=== PATIENT | female | born 1950 | race Caucasian/White ===

== ENCOUNTER 2018-10-23 08:20 | Inpatient (IN) ==
[2018-10-23] MEDS ORDERED: ONDANSETRON INJ 2 MG/ML 2 ML VIAL IV STA (08:44)
[2018-10-23] MEDS ORDERED: SODIUM CHLORIDE 0.9% 1000ML 1,000 ML IV ONE (08:47)
[2018-10-23] MEDS ORDERED: CEFEPIME 2,000 MG/20 ML VIAL IV STA (08:47)
[2018-10-23] MEDS ORDERED: ACETAMINOPHEN 1,000 MG/100 ML VIAL IV STA (08:47)
[2018-10-23 09:00] LABS: Basophils # (auto) 0.01 K/uL (0-0.2); Basophils % (auto) 0.1 %; Eosinophils # (auto) 0.02 K/uL (0-0.5); Eosinophils % (auto) 0.2 %; Hematocrit (blood only) 40.9 % (37-47); Hemoglobin 14.2 g/dL (12.0-16.0); Immature Granulocytes # (auto) 0.02 K/uL (0.00-0.02); Immature Granulocytes % (auto) 0.2 %; Lymphocytes # (auto) 0.98 K/uL (1.2-3.4); Mean Corpuscular Hgb Conc 34.7 g/dL (32-36); Mean Corpuscular Volume 91.5 fL (80-100); Mean Platelet Volume 10.5 fL (7.4-10.4); Monocytes # (auto) 0.57 K/uL (0.11-0.59); Monocytes % (auto) 5.8 %; Neutrophils # (auto) 8.22 K/uL (1.4-6.5); Neutrophils % (auto) 83.7 %; Platelet Count 127 K/uL (130-400); RDW Coefficient of Variation 13.7 % (11.5-14.5); RDW Standard Deviation 45.2 fL (36.4-46.3); Red Blood Count 4.47 M/uL (4.2-5.4); White Blood Count 9.82 K/uL (4.8-10.8)
--- NOTE | 2018-10-23 09:02 | Emergency Department Note ---
Entered by Rosemary Fuller acting as a scribe for Patrice España MD History of Present Illness General Chief complaint: Illness Stated complaint: R flank pain Time Seen by Provider: 10/23/18 08:39 Source: patient History of Present Illness Onset (ago): hour(s) (this morning) Location: abdomen (right flank) Radiation: back (right side) Severity: severe Pain Consistency: + other (persistent) Maximum Pain Intensity: 10 Current Pain Intensity: 10 Associated symptoms: + denies other symptoms (dysuria, urinary frequency), + c ough (productive), + fever/chills, + nausea/vomiting, + shortness of breath and + other (diarrhea) The patient is a 67 year old female that is presenting to the Emergency Room with complaints of persistent right-sided flank pain that worsened this morning. The patient reports that she and [place] were [place] campground and that the pain became so severe that she called EMS to bring her to the hospital. She describes the pain as 10/10 in severity. She states that she has had vomiting an d diarrhea for the past 3 days. She notes that she developed a subjective fever with chills last night that is still present today. She denies any dysuria or urinary frequency. She reports that she has chronic pain in her right side but notes that the pain is worse than baseline. The patient states she has a productive cough. She notes some shortness of breath but states that she has a history of COPD and wears O2 at night. She reports that she wears a CPAP at night. She states that she has a stimulator due to her chronic pain but notes that it has not relieved her current symptoms. The patient notes that she has a history of abdominal hernias and that she has a pelvic mesh in place. She denies any history of an appendectomy. She notes that she takes baby aspirin every day but denies taking any Coumadin. The patient notes that she has not taken any medication for the pain as she is unable to keep anything down. She notes that she has a history of sepsis from a kidney stone. She reports that she is allergic to Percocet. Home Medications Home Medications Medication Instructions Recorded Confirmed Type acetaminophen [Tylenol Extra 500 mg PO DIRECTED 10/23/18 10/23/18 History Strength] aspirin [Aspirin Low Dose] 162 mg PO DAILY 10/23/18 10/23/18 History buspirone 15 mg PO BID 10/23/18 10/23/18 History calcium carbonate [Calcium 600] 0 mg PO DAILY 10/23/18 10/23/18 History cholecalciferol (vitamin D3) 1,000 unit PO DAILY 10/23/18 10/23/18 History [Vitamin D3] clonazepam 0.5 tab PO HS 10/23/18 10/23/18 History cyanocobalamin (vitamin B-12) 1,000 mcg PO DAILY 10/23/18 10/23/18 History [Vitamin B-12] duloxetine 20 mg PO DAILY 10/23/18 10/23/18 History ferrous sulfate 325 mg PO BID 10/23/18 10/23/18 History fluticasone furoate-vilanterol 1 puff INHALATION DAILY 10/23/18 10/23/18 History [Breo Ellipta] levothyroxine 125 mcg PO QAM 10/23/18 10/23/18 History lisinopril-hydrochlorothiazide 1 tab PO DAILY 10/23/18 10/23/18 History meloxicam 0 mg PO DAILY 10/23/18 10/23/18 History metoprolol succinate 100 mg PO DAILY 10/23/18 10/23/18 History omeprazole 20 mg PO HS 10/23/18 10/23/18 History potassium chloride 0.5 tab PO DAILY 10/23/18 10/23/18 History potassium citrate 10 meq PO DAILY 10/23/18 10/23/18 History sertraline 100 mg PO HS 10/23/18 10/23/18 History simvastatin 20 mg PO HS 10/23/18 10/23/18 History Allergies Allergy/AdvReac Type Severity Reaction Status Date / Time etodolac Allergy Intermediate HIVES Verified 10/23/18 10:26 sumatriptan Allergy HIVES Verified 10/23/18 10:26 acetaminophen AdvReac Intermediate NAUSEA Verified 10/23/18 10:26 oxycodone AdvReac Intermediate NAUSEA Verified 10/23/18 10:26 Past Med/Surg History Medical History COPD (chronic obstructive pulmonary disease) (Chronic) Chronic pain (Chronic) Abdominal hernia (Acute) Family History Other Family history non-contributory Social History Preferred Language: Uzbek Communication Ability: Effective [employer] Inspector Required: No Beliefs That Will Affect Care: None marital status: Current Living Situation: Spouse current occupational status: unemployed Other Information That Helps Us Care for You: No Feels Safe at Home: Yes Safety Concerns: Feels Safe At This Time Smoking Status: Never smoker Do You Dip or Chew Tobacco: No Second Hand Exposure: No Tobacco Cessation Education Requested by Patient: No Hx Alcohol Use: No Hx Substance Use: Yes substance use type: marijuana Last Used Substance: Days (ago) Last Used Substance Other:: 2 days ago, prescription Review of Systems See HPI for pertinent positives & negatives. and A total of 10 systems reviewed and were otherwise negative Physical Exam Vital Signs Vital Signs - 24 hr 10/23/18 08:39 10/23/18 08:50 10/23/18 10:35 Temperature 38.6 C H Temperature Source Oral Sepsis Recent Fever Within 48 Hours Yes Sepsis New/Unexplained Change in Mental Status No Sepsis Action Taken by Nursing No Action Required Pulse Rate 114 H Pulse Rate [Apical] 104 H Pulse Rhythm [Apical] Pulse Strength [Apical] Respiratory Rate 20 18 Respiratory Effort / Characteristics Respiratory Depth Normal Respiratory Pattern Blood Pressure 135/72 Blood Pressure [Left Arm] 116/69 Blood Pressure Mean 93 Blood Pressure Mean [Left Arm] 84 Blood Pressure Position [Left Arm] Pulse Oximetry 93 96 94 Oxygen Delivery Method Room Air Nasal Cannula Nasal Cannula Oxygen Flow Rate 2 2 10/23/18 12:00 10/23/18 13:15 Temperature 37.8 C H Temperature Source Oral Sepsis Recent Fever Within 48 Hours Sepsis New/Unexplained Change in Mental Status Sepsis Action Taken by Nursing Pulse Rate Pulse Rate [Apical] 106 H 112 H Pulse Rhythm [Apical] Regular Pulse Strength [Apical] Normal Respiratory Rate 16 20 Respiratory Effort / Characteristics SOB on Exertion Respiratory Depth Normal Respiratory Pattern Regular Blood Pressure Blood Pressure [Left Arm] 108/64 112/68 Blood Pressure Mean Blood Pressure Mean [Left Arm] 78 82 Blood Pressure Position [Left Arm] Sitting Pulse Oximetry 94 95 Oxygen Delivery Method Nasal Cannula Nasal Cannula Oxygen Flow Rate 2 2 GENERAL: Patient is in no acute distress. HEENT: No acute trauma, normocephalic atraumatic, mucous membranes dry, no nasal congestion, no scleral icterus. NECK: No stridor, no adenopathy, no meningismus, trachea is midline. LUNGS: Clear to auscultation bilaterally, no wheeze, no rhonchi, breath sounds equal. HEART: Tachycardic with a regular rhythm, no murmurs. ABDOMEN: Soft, tender along the entire right side, bowel sounds positive, no hernias, no peritonitis. EXTREMITIES: No cyanosis or edema, full range of motion of all the joints without pain or difficulty, no signs for acute trauma. NEUROLOGIC: Oriented x 3, no acute motor or sensory deficits, no focal weakness. SKIN: No rash, no jaundice, no diaphoresis. Course 0841:The patient was evaluated in room B07. A complete history and physical examination was performed. 1015: I updated the patient on her current lab and imaging results. 1025: I discussed the patient's case with Shanice Elliott, who will evaluate the patient for further management and care. 1030: Upon reevaluation, the patient is resting comfortably. I discussed laboratory and radiographic results with the patient. She verbalized agreement of the treatment plan. The patient will be evaluated for further management and care. Consultations Consultation #1: I discussed the patient's case with Shanice Elliott, who will evaluate the patient for further management and care. Time: 10:25 Administered Medications Acetaminophen (Tylenol) 650 mg PO Q4H PRN PRN Reason: Pain or Fever Stop: 11/22/18 11:06 Last Admin: 10/23/18 14:06 Dose: 650 mg Documented by: [id number] Potassium Chloride/Sodium Chloride (Normal Saline W/20 Meq Kcl) 20 meq in 1,000 mls @ 125 mls/hr IV .Q8H KAILA Stop: 11/22/18 13:29 Last Admin: 10/23/18 14:08 Dose: 125 mls/hr Documented by: [id number] Discontinued Medications Hydromorphone HCl (Dilaudid) 1 mg IV Q45M PRN PRN Reason: Pain Stop: 11/06/18 08:43 Last Admin: 10/23/18 12:50 Dose: 1 mg Documented by: [id number] Admin: 10/23/18 10:30 Dose: 1 mg Documented by: [id number] Admin: 10/23/18 09:11 Dose: 1 mg Documented by: [id number] Acetaminophen (Ofirmev) 1,000 mg in 100 mls @ 400 mls/hr IV NOW STA Stop: 10/23/18 09:01 Last Infusion: 10/23/18 09:30 Dose: 0 mls/hr Documented by: [id number] Admin: 10/23/18 09:13 Dose: 400 mls/hr Documented by: [id number] Cefepime HCl (Maxipime) 2,000 mg in 20 mls @ 5 mls/min IV NOW STA; Protocol Stop: 10/23/18 08:50 Last Admin: 10/23/18 09:13 Dose: 5 mls/min Documented by: [id number] Sodium Chloride (Nss 1000ml) 1,000 mls @ 999 mls/hr IV .Q1H1M ONE Stop: 10/23/18 09:47 Last Infusion: 10/23/18 10:15 Dose: 0 mls/hr Documented by: [id number] Admin: 10/23/18 09:10 Dose: 999 mls/hr Documented by: [id number] Ampicillin Sodium/Sulbactam Sodium 3,000 mg/ Sodium Chloride 108 mls @ 200 mls/hr IV NOW STA; Protocol Stop: 10/23/18 10:53 Last Infusion: 10/23/18 12:00 Dose: 0 mls/hr Documented by: [id number] Admin: 10/23/18 11:07 Dose: 200 mls/hr Documented by: [id number] Sodium Chloride (Nss 1000ml) 500 mls @ 999 mls/hr IV .Q31M ONE Stop: 10/23/18 10:51 Last Infusion: 10/23/18 11:03 Dose: 0 mls/hr Documented by: [id number] Admin: 10/23/18 10:32 Dose: 999 mls/hr Documented by: [id number] Piperacillin Sod/Tazobactam (Sod 4.5 gm/ Dextrose) 120 mls @ 200 mls/hr IV NOW ONE; Protocol Stop: 10/23/18 14:05 Last Admin: 10/23/18 13:40 Dose: 200 mls/hr Documented by: [id number] Ondansetron HCl (Zofran) 4 mg IV NOW STA Stop: 10/23/18 08:45 Last Admin: 10/23/18 09:12 Dose: 4 mg Documented by: [id number] Potassium Chloride (Klor-Con M10) 40 meq PO NOW STA Stop: 10/23/18 13:16 Last Admin: 10/23/18 13:39 Dose: 40 meq Documented by: [id number] Medical Decision Making Differential Diagnosis Differential diagnosis includes: Etiologies such as renal colic, acute on chronic pain, biliary colic, pancreatitis, appendicitis, diverticulitis, pyelonephritis, pneumonia, CHF, renal failure, electrolyte imbalance as well as others were entertained. Medical Records Attestation: I reviewed the patient's medical records. Home Medications Current Medication List: was personally reviewed by me Laboratory Data Attestation: I reviewed the patient's lab results. Result diagrams: 10/23/18 08:33 10/23/18 08:33 Lab Results 10/23/18 10/23/18 10/23/18 Range/Units 08:33 08:33 08:33 WBC 9.82 (4.8-10.8) K/uL RBC 4.47 (4.2-5.4) M/uL Hgb 14.2 (12.0-16.0) g/dL Hct 40.9 (37-47) % MCV 91.5 (80-100) fL MCH 31.8 (25-34) pg MCHC 34.7 (32-36) g/dL RDW Std Deviation 45.2 (36.4-46.3) fL RDW Coeff of Neil 13.7 (11.5-14.5) % Plt Count 127 L (130-400) K/uL MPV 10.5 H (7.4-10.4) fL Immature Gran % (Auto) 0.2 % Neut % (Auto) 83.7 % Lymph % (Auto) 10.0 % [place]ois % (Auto) 5.8 % Eos % (Auto) 0.2 % Baso % (Auto) 0.1 % Immature Gran # (Auto) 0.02 (0.00-0.02) K/uL Neut # (Auto) 8.22 H (1.4-6.5) K/uL Lymph # (Auto) 0.98 L (1.2-3.4) K/uL [place]ois # (Auto) 0.57 (0.11-0.59) K/uL Eos # (Auto) 0.02 (0-0.5) K/uL Baso # (Auto) 0.01 (0-0.2) K/uL PT 10.4 (9.0-12.0) Seconds INR 1.0 (0.9-1.1) APTT (21.0-31.0) Seconds PTT Ratio Sodium 139 (136-145) mmol/L Potassium 3.1 L (3.5-5.1) mmol/L Chloride 107 (98-107) mmol/L Carbon Dioxide 24 (21-32) mmol/L Anion Gap 8.0 (3-11) BUN 14 (7-18) mg/dl Creatinine 0.81 (0.6-1.2) mg/dl Est Cr Clr Drug Dosing 79.8 ml/min Est GFR ( Amer) 88.3 Est GFR (Non-Af Amer) 76.2 BUN/Creatinine Ratio 16.8 (10-20) Glucose 122 H (70-99) mg/dl Lactate (0.4-2.0) mmol/L Calcium 9.2 (8.5-10.1) mg/dl Magnesium 1.8 (1.8-2.4) mg/dl Total Bilirubin 1.6 H (0.2-1) mg/dl AST 79 H (15-37) U/L ALT 120 H (12-78) U/L Alkaline Phosphatase 118 H (45-117) U/L Troponin I < 0.015 (0-0.045) ng/ml Total Protein 7.6 (6.4-8.2) gm/dl Albumin 3.4 (3.4-5.0) gm/dl Globulin 4.2 H (2.5-4.0) gm/dl Albumin/Globulin Ratio 0.8 L (0.9-2) Lipase 74 (73-393) U/L Urine Color Urine Appearance (Clear) Urine pH (4.5-7.5) Ur Specific [place] (1.000-1.030) Urine Protein (Negative) Urine Glucose (UA) (Negative) Urine Ketones (Negative) Urine Blood (Negative) Urine Nitrite (Negative) Urine Bilirubin (Negative) Urine Urobilinogen (Negative) Ur Leukocyte Esterase (Negative) Urine WBC (Auto) (0-5) /hpf Urine RBC (Auto) (0-4) /hpf U Hyaline Cast (Auto) (0-5) /lpf U Epithel Cells (Auto) (0-5) /lpf Urine Bacteria (Auto) (Negative) 10/23/18 10/23/18 10/23/18 Range/Units 08:33 08:33 09:21 WBC (4.8-10.8) K/uL RBC (4.2-5.4) M/uL Hgb (12.0-16.0) g/dL Hct (37-47) % MCV (80-100) fL MCH (25-34) pg MCHC (32-36) g/dL RDW Std Deviation (36.4-46.3) fL RDW Coeff of Neil (11.5-14.5) % Plt Count (130-400) K/uL MPV (7.4-10.4) fL Immature Gran % (Auto) % Neut % (Auto) % Lymph % (Auto) % Dubois % (Auto) % Eos % (Auto) % Baso % (Auto) % Immature Gran # (Auto) (0.00-0.02) K/uL Neut # (Auto) (1.4-6.5) K/uL Lymph # (Auto) (1.2-3.4) K/uL [place]ois # (Auto) (0.11-0.59) K/uL Eos # (Auto) (0-0.5) K/uL Baso # (Auto) (0-0.2) K/uL PT (9.0-12.0) Seconds INR (0.9-1.1) APTT 27.6 (21.0-31.0) Seconds PTT Ratio 1.0 Sodium (136-145) mmol/L Potassium (3.5-5.1) mmol/L Chloride (98-107) mmol/L Carbon Dioxide (21-32) mmol/L Anion Gap (3-11) BUN (7-18) mg/dl Creatinine (0.6-1.2) mg/dl Est Cr Clr Drug Dosing ml/min Est GFR ( Amer) Est GFR (Non-Af Amer) BUN/Creatinine Ratio (10-20) Glucose (70-99) mg/dl Lactate 1.3 (0.4-2.0) mmol/L Calcium (8.5-10.1) mg/dl Magnesium (1.8-2.4) mg/dl Total Bilirubin (0.2-1) mg/dl AST (15-37) U/L ALT (12-78) U/L Alkaline Phosphatase (45-117) U/L Troponin I Cancelled (0-0.045) ng/ml Total Protein (6.4-8.2) gm/dl Albumin (3.4-5.0) gm/dl Globulin (2.5-4.0) gm/dl Albumin/Globulin Ratio (0.9-2) Lipase (73-393) U/L Urine Color Urine Appearance (Clear) Urine pH (4.5-7.5) Ur Specific [place] (1.000-1.030) Urine Protein (Negative) Urine Glucose (UA) (Negative) Urine Ketones (Negative) Urine Blood (Negative) Urine Nitrite (Negative) Urine Bilirubin (Negative) Urine Urobilinogen (Negative) Ur Leukocyte Esterase (Negative) Urine WBC (Auto) (0-5) /hpf Urine RBC (Auto) (0-4) /hpf U Hyaline Cast (Auto) (0-5) /lpf U Epithel Cells (Auto) (0-5) /lpf Urine Bacteria (Auto) (Negative) 10/23/18 Range/Units 10:15 WBC (4.8-10.8) K/uL RBC (4.2-5.4) M/uL Hgb (12.0-16.0) g/dL Hct (37-47) % MCV (80-100) fL MCH (25-34) pg MCHC (32-36) g/dL RDW Std Deviation (36.4-46.3) fL RDW Coeff of Neil (11.5-14.5) % Plt Count (130-400) K/uL MPV (7.4-10.4) fL Immature Gran % (Auto) % Neut % (Auto) % Lymph % (Auto) % [place] % (Auto) % Eos % (Auto) % Baso % (Auto) % Immature Gran # (Auto) (0.00-0.02) K/uL Neut # (Auto) (1.4-6.5) K/uL Lymph # (Auto) (1.2-3.4) K/uL [place]ois # (Auto) (0.11-0.59) K/uL Eos # (Auto) (0-0.5) K/uL Baso # (Auto) (0-0.2) K/uL PT (9.0-12.0) Seconds INR (0.9-1.1) APTT (21.0-31.0) Seconds PTT Ratio Sodium (136-145) mmol/L Potassium (3.5-5.1) mmol/L Chloride (98-107) mmol/L Carbon Dioxide (21-32) mmol/L Anion Gap (3-11) BUN (7-18) mg/dl Creatinine (0.6-1.2) mg/dl Est Cr Clr Drug Dosing ml/min Est GFR ( Amer) Est GFR (Non-Af Amer) BUN/Creatinine Ratio (10-20) Glucose (70-99) mg/dl Lactate (0.4-2.0) mmol/L Calcium (8.5-10.1) mg/dl Magnesium (1.8-2.4) mg/dl Total Bilirubin (0.2-1) mg/dl AST (15-37) U/L ALT (12-78) U/L Alkaline Phosphatase (45-117) U/L Troponin I (0-0.045) ng/ml Total Protein (6.4-8.2) gm/dl Albumin (3.4-5.0) gm/dl Globulin (2.5-4.0) gm/dl Albumin/Globulin Ratio (0.9-2) Lipase (73-393) U/L Urine Color Dark Yellow Urine Appearance Cloudy A (Clear) Urine pH 5.5 (4.5-7.5) Ur Specific [place] 1.031 H (1.000-1.030) Urine Protein 1+ H (Negative) Urine Glucose (UA) Negative (Negative) Urine Ketones Trace H (Negative) Urine Blood 1+ H (Negative) Urine Nitrite Positive A (Negative) Urine Bilirubin Negative (Negative) Urine Urobilinogen Negative (Negative) Ur Leukocyte Esterase Negative (Negative) Urine WBC (Auto) 1-5 (0-5) /hpf Urine RBC (Auto) 0-4 (0-4) /hpf U Hyaline Cast (Auto) 5-10 H (0-5) /lpf U Epithel Cells (Auto) >30 H (0-5) /lpf Urine Bacteria (Auto) 2+ H (Negative) Imaging Data Radiologist's Impression: Radiology results as stated below per my review and the radiologist's interpretation: CT SCAN OF THE ABDOMEN AND PELVIS WITHOUT CONTRAST CLINICAL HISTORY: Right flank pain. History of fibromyalgia. History of kidney stones. COMPARISON STUDY: No previous studies for comparison. TECHNIQUE: CT scan of the abdomen and pelvis was performed from the lung bases to the proximal femurs. Images are reviewed in the axial, sagittal, and coronal planes. IV contrast was not administered for this examination. A dose lowering technique was utilized adhering to the principles of ALARA. CT DOSE: 1414.72 mGy.cm FINDINGS: Lower chest: The heart is normal in size and configuration, without pericardial effusion. The lung bases and pleural spaces are clear. There is a small Bochdalek hernia. Liver: There is hepatic steatosis. No focal hepatic masses are visualized. The liver is enlarged measuring 23 cm. Gallbladder: Surgically absent Spleen: Top normal in size Pancreas: Unremarkable. Adrenal glands: Unremarkable. Kidneys: There are subtle right renal calcifications, likely cortical. No ureteral or bladder calculi are visualized. Bowel: There are no transition zones indicate bowel obstruction. The appendix is normal. There is pandiverticulosis. There is infiltration the pericolonic fat at the level of the ascending colon, likely secondary to diverticulitis. There are no fluid collections to indicate a peridiverticular abscess. Peritoneum: There is no free air. There is no ascites. There is a ventral hernia mesh. There are small fat-containing umbilical hernia, and infraumbilical ventral hernia. Vasculature: The abdominal aorta is normal in course and caliber. Adenopathy: None. Pelvic viscera: The bladder, and pelvic viscera are unremarkable. Skeletal structures: A spinal cord stimulator is visualized. IMPRESSION: 1. No evidence of bowel obstruction. No evidence of free air 2. Hepatic steatosis and mild hepatomegaly 3. Normal appendix 4. Pandiverticulosis. Infiltration of the pericolonic fat at the level of the ascending colon likely secondary to acute diverticulitis. Electronically signed by: Pipo Cano M.D. 10/23/2018 9:58 AM XR chest 1V portable CLINICAL HISTORY: sob,cough COMPARISON STUDY: 01/15/2013 FINDINGS: The heart is borderline enlarged. A spinal cord stimulator is visualized. There is mild elevation of the interstitium suggesting mild pulmonary vascular congestion/fluid overload versus artifact from a large body habitus. There is a calcified granuloma within the left midlung zone. There is no lobar consolidation. There are no significant pleural effusions.[ IMPRESSION: 1. Slight elevation of the interstitium. Mild pulmonary vascular congestion versus artifact secondary to large body habitus. 2. No evidence of focal pulmonary consolidation Electronically signed by: Pipo Cano M.D. 10/23/2018 10:04 AM ECG Data Attestation: I personally reviewed and interpreted this ECG as follows: Indication: abdominal pain Rate (beats per minute): 109 Rhythm: sinus tachycardia Findings: + other (potential old inferior infarct) and + nonspecific-ST abn (diffuse); no ST elevation Blood Pressure Blood Pressure Findings: Normal blood pressure MDM Narrative There is no leukocytosis or concerning anemia. Platelet count mildly low at 127. No coagulopathy. Potassium is slightly low at 3.1. No kidney failure. There was some liver enzyme elevation, apparently, the patient is aware of the mildly elevated liver enzymes from previous testing. There was no pancreatitis. EKG showed a sinus tachycardia, no acute ischemia. Cardiac enzyme testing x1 was not consistent with acute cardiac injury. Lactic acid level was not elevated making severe sepsis less likely. Chest film did not show pneumonia or CHF. Abdominal and pelvis CT did not show hydronephrosis or bowel obstruction. There was diverticulitis noted. No abscess seen. Urinalysis showed possible contamination versus infection, urine culture is pending. Blood cultures are pending. Patient was aggressively managed as she presented tachycardic and febrile. She received IV saline, a second bolus of saline was given. She was given IV Zofran, IV Dilaudid, IV cefepime and IV Tylenol. She received IV Unasyn once the diverticulitis was noted on CT. The patient does feel improved, she seems more comfortable. Given the fever, the tachycardia, the nausea and vomiting, the findings on CT, I do think a hospital stay is warranted. I spoke to the patient and case management. The on-call hospitalist was consulted. I do think the diverticulitis could explain her symptoms. Impression & Plan Acute diverticulitis, Nausea vomiting and diarrhea, Tachycardia, Right sided abdominal pain, Acute dehydration, Fever Critical Care Time I have personally spent 35 minutes of critical care time in the direct management of this patient. This includes bedside care, interpretation of diagn ostic studies, and testing, discussion with consultants, patient, and family members, and other required patient management activities. This 35 minutes is in excess of all separately billable procedures. Critical Care Time: Yes Total Critical Care Time: 35 Discharge Plan Visit Data *Final* Discharge Date/Time: 10/23/18 12:43 Chief Complaint: Illness Stated Complaint: R flank pain ED Provider: Patrice España Discharge Problem: Acute diverticulitis, Nausea vomiting and diarrhea, Tachycardia, Right sided abdominal pain, Acute dehydration, Fever Patient Disposition: Admitted As Inpatient Discharge Instructions Interventions: ED Discharge Assessment Last Done: 10/23/18 12:43 Discharge Problem: Fever Qualifiers: Fever type: unspecified Qualified Code(s): R50.9 - Fever, unspecified The scribe's documentation has been prepared under my direction and personally reviewed by me in its entirety. I confirm that the note above accurately reflects all work, treatment, procedures, and medical decision making performed by me.
[2018-10-23 09:07] LABS: Alanine Aminotransferase 120 U/L (12-78); Albumin Level 3.4 gm/dl (3.4-5.0); Aspartate Aminotransferase 79 U/L (15-37); BUN Creatinine Ratio 16.8 (10-20); Blood Urea Nitrogen 14 mg/dl (7-18); Calcium 9.2 mg/dl (8.5-10.1); Carbon Dioxide 24 mmol/L (21-32); Chloride 107 mmol/L (98-107); Creatinine Clr Calc Pharmacy 79.8 ml/min; Est GFR (African American) 88.3; Est GFR (Non-African American) 76.2; Glucose 122 mg/dl (70-99); Magnesium 1.8 mg/dl (1.8-2.4); Potassium 3.1 mmol/L (3.5-5.1); Sodium 139 mmol/L (136-145)
[2018-10-23] MEDS: HYDROmorphone INJ 1 MG/ML SYRINGE IV PRN ×5 (09:11→21:41)
[2018-10-23 09:12] LABS: Albumin Globulin Ratio 0.8 (0.9-2); Alkaline Phosphatase 118 U/L (45-117); Bilirubin,Total 1.6 mg/dl (0.2-1); Globulin 4.2 gm/dl (2.5-4.0); Partial Thromboplastin Time 27.6 Seconds (21.0-31.0); Total Protein 7.6 gm/dl (6.4-8.2); Troponin I < 0.015 ng/ml (0-0.045)
[2018-10-23 09:14] LABS: Prothrombin Time 10.4 Seconds (9.0-12.0)
--- NOTE | 2018-10-23 10:00 | CT Scan Report ---
CT SCAN OF THE ABDOMEN AND PELVIS WITHOUT CONTRAST CLINICAL HISTORY: Right flank pain. History of fibromyalgia. History of kidney stones. COMPARISON STUDY: No previous studies for comparison. TECHNIQUE: CT scan of the abdomen and pelvis was performed from the lung bases to the proximal femurs . Images are reviewed in the axial, sagittal, and coronal planes. IV contrast was not administered fo r this examination. A dose lowering technique was utilized adhering to the principles of ALARA. CT DOSE: 1414.72 mGy.cm FINDINGS: Lower chest: The heart is normal in size and configuration, without pericardial effusion. The lung ba ses and pleural spaces are clear. There is a small Bochdalek hernia. Liver: There is hepatic steatosis. No focal hepatic masses are visualized. The liver is enlarged anne uring 23 cm. Gallbladder: Surgically absent Spleen: Top normal in size Pancreas: Unremarkable. Adrenal glands: Unremarkable. Kidneys: There are subtle right renal calcifications, likely cortical. No ureteral or bladder calculi are visualized. Bowel: There are no transition zones indicate bowel obstruction. The appendix is normal. There is mena diverticulosis. There is infiltration the pericolonic fat at the level of the ascending colon, likely secondary to diverticulitis. There are no fluid collections to indicate a peridiverticular abscess. Peritoneum: There is no free air. There is no ascites. There is a ventral hernia mesh. There are smal l fat-containing umbilical hernia, and infraumbilical ventral hernia. Vasculature: The abdominal aorta is normal in course and caliber. Adenopathy: None. Pelvic viscera: The bladder, and pelvic viscera are unremarkable. Skeletal structures: A spinal cord stimulator is visualized. IMPRESSION: 1. No evidence of bowel obstruction. No evidence of free air 2. Hepatic steatosis and mild hepatomegaly 3. Normal appendix 4. Pandiverticulosis. Infiltration of the pericolonic fat at the level of the ascending colon likely secondary to acute diverticulitis. Electronically signed by: Pipo Cano M.D. 10/23/2018 9:58 AM
--- NOTE | 2018-10-23 10:05 | XRay Report ---
XR chest 1V portable CLINICAL HISTORY: sob,cough COMPARISON STUDY: 01/15/2013 FINDINGS: The heart is borderline enlarged. A spinal cord stimulator is visualized. There is mild ce vation of the interstitium suggesting mild pulmonary vascular congestion/fluid overload versus artifa ct from a large body habitus. There is a calcified granuloma within the left midlung zone. There is n o lobar consolidation. There are no significant pleural effusions.[ IMPRESSION: 1. Slight elevation of the interstitium. Mild pulmonary vascular congestion versus artifact secondary to large body habitus. 2. No evidence of focal pulmonary consolidation Electronically signed by: Pipo Cano M.D. 10/23/2018 10:04 AM
[2018-10-23] MEDS ORDERED: SODIUM CHLORIDE 0.9% 1000ML 500 ML IV ONE (10:21)
[2018-10-23] MEDS ORDERED: AMPICILLIN/SULBACTAM SOD 3,000 MG in 0.9 % SODIUM CHLORIDE 100 ML IV STA (10:21)
[2018-10-23 10:29] LABS: Appearance Urine Cloudy (Clear); Bacteria Urine Automated 2+ (Negative); Blood Urine 1+ (Negative); Color Urine Dark Yellow; Epithelial Cell Urine Auto >30 /lpf (0-5); Glucose Urine UA Negative (Negative); Ketones Urine Trace (Negative); Leukocyte Esterase Urine Negative (Negative); Nitrite Urine Positive (Negative); Protein Urine 1+ (Negative); Specific Gravity Urine 1.031 (1.000-1.030); Urobilinogen Urine Negative (Negative); pH Urine 5.5 (4.5-7.5)
[2018-10-23 10:54] LABS: Bilirubin Urine Negative (Negative); Ictotest Urine Negative (Negative)
[2018-10-23 10:58] LABS: RBC Urine Automated 0-4 /hpf (0-4)
[2018-10-23] MEDS ORDERED: PIPERACILL/TAZOBAC CONSULT ACTIVE PRN (11:38)
--- NOTE | 2018-10-23 12:25 | History & Physical Report ---
Date of Service October 23, 2018 Assessment & Plan (1) Right sided abdominal pain: Possible Sepsis from: Acute diverticulitis, Ascending Colon Rule out UTI, pyelonephritis BP on the low side lactic acid normal Follow-up blood and urine cultures Empiric Zosyn IV day 1 IV NSS at 125 cc/h N.p.o. except for meds, ice chips/sips of water Dilaudid 1 mg every 4 hours as needed, avoiding Toradol in light of allergy to etodolac, avoiding Tylenol in light of elevated LFTs Diarrhea History of antibiotic use recently Check for C. difficile Elevation of LFTs Will check liver ultrasound Monitor liver panel daily COPD Requiring 2 L of nasal cannula We will order nebs every 6 hours May have atelectasis from pain Incentive spirometry ordered Continue usual Brio DVT prophylaxis SCDs for now in light of diverticulitis If with no melena or hematochezia, will start Lovenox Full code as per patient Disposition Anticipate discharge to home medically stable History of Present Illness 67-year-old female with history of COPD, chronic pain, presenting with right- sided flank pain x2 weeks. Patient reports she was in her usual state of health until about 2 weeks ago when she started to have right flank pain radiating to her right groin About 2 weeks ago. Patient consulted with her primary care provider and was found to have muscular pain, conservative measures recommended. Following that, the pain progressed, and during the last 2 days was associated with nausea, vomiting, diarrhea. Denies melena or hematochezia. Denies dysuria. Yesterday patient started to have chills as well. At the ER patient was found to be tachycardic, febrile 38.6. CT abdomen and pelvis revealed possible descending colon diverticulitis. UA suggestive of possible UTI. On exam, patient was not in distress but appears uncomfortable, still having significant right flank pain. Denies chest pain, shortness of breath, dizziness, palpitations. No other symptoms. Primary Care Provider: NO PCP Allergies Allergy/AdvReac Type Severity Reaction Status Date / Time etodolac Allergy Intermediate HIVES Verified 10/23/18 10:26 sumatriptan Allergy HIVES Verified 10/23/18 10:26 acetaminophen AdvReac Intermediate NAUSEA Verified 10/23/18 10:26 oxycodone AdvReac Intermediate NAUSEA Verified 10/23/18 10:26 Home Medications Home Medications Medication Instructions Recorded Confirmed Type acetaminophen [Tylenol Extra 500 mg PO DIRECTED 10/23/18 10/23/18 History Strength] aspirin [Aspirin Low Dose] 162 mg PO DAILY 10/23/18 10/23/18 History buspirone 15 mg PO BID 10/23/18 10/23/18 History calcium carbonate [Calcium 600] 0 mg PO DAILY 10/23/18 10/23/18 History cholecalciferol (vitamin D3) 1,000 unit PO DAILY 10/23/18 10/23/18 History [Vitamin D3] clonazepam 0.5 tab PO HS 10/23/18 10/23/18 History cyanocobalamin (vitamin B-12) 1,000 mcg PO DAILY 10/23/18 10/23/18 History [Vitamin B-12] duloxetine 20 mg PO DAILY 10/23/18 10/23/18 History ferrous sulfate 325 mg PO BID 10/23/18 10/23/18 History fluticasone furoate-vilanterol 1 puff INHALATION DAILY 10/23/18 10/23/18 History [Breo Ellipta] levothyroxine 125 mcg PO QAM 10/23/18 10/23/18 History lisinopril-hydrochlorothiazide 1 tab PO DAILY 10/23/18 10/23/18 History meloxicam 0 mg PO DAILY 10/23/18 10/23/18 History metoprolol succinate 100 mg PO DAILY 10/23/18 10/23/18 History omeprazole 20 mg PO HS 10/23/18 10/23/18 History potassium chloride 0.5 tab PO DAILY 10/23/18 10/23/18 History potassium citrate 10 meq PO DAILY 10/23/18 10/23/18 History sertraline 100 mg PO HS 10/23/18 10/23/18 History simvastatin 20 mg PO HS 10/23/18 10/23/18 History Past Med/Surg History Medical History COPD (chronic obstructive pulmonary disease) (Chronic) Chronic pain (Chronic) Abdominal hernia (Acute) Family History Other Family history non-contributory Social History Preferred Language: Czech Communication Ability: Effective Anesthesiology Physician Assistant Required: No Beliefs That Will Affect Care: None marital status: Current Living Situation: Spouse current occupational status: unemployed Other Information That Helps Us Care for You: No Feels Safe at Home: Yes Safety Concerns: Feels Safe At This Time Smoking Status: Never smoker Do You Dip or Chew Tobacco: No Second Hand Exposure: No Tobacco Cessation Education Requested by Patient: No Hx Alcohol Use: No Hx Substance Use: Yes substance use type: marijuana Last Used Substance: Days (ago) Last Used Substance Other:: 2 days ago, prescription Review of Systems Review of Systems: All systems reviewed & are unremarkable except as noted in HPI & below Physical Exam Physical Exam: General- oriented x 3, not in distress, speaks in sentences with no effort or accessory muscle use Head- atraumatic Eyes- PERRL, EOMI, anicteric ENT- oropharynx clear Neck- supple, no JVD, no adenopathy, no thyromegaly; carotids +2/2, no bruits appreciated Lungs- clear to auscultation bilaterally, no rales/wheezes Heart- normal rate, regular rhythm; no murmur, no gallop, no rub appreciated Abdomen- normal bowel sounds, nondistended, soft, positive right lower quadrant tenderness, moderate, no masses or hepatosplenomegaly Extremities- no pretibial edema, no calf tenderness; peripheral pulses intact Neuro- alert, oriented x 3; CN 2-12 grossly intact; motor 5/5 bilaterally;sensation 100% on all extremities; no other gross focal neurologic deficits Skin- warm & dry Results & Data Vital Signs (Past 12 Hours) Vital Signs Temp Pulse Pulse Resp BP BP Pulse Ox 10/23/18 12:00 106 H 16 108/64 94 10/23/18 10:35 104 H 18 116/69 94 10/23/18 08:50 96 10/23/18 08:39 38.6 C H 114 H 20 135/72 93 Laboratory Results Laboratory Results - last 24 hr 10/23/18 10/23/18 10/23/18 08:33 08:33 08:33 WBC 9.82 RBC 4.47 Hgb 14.2 Hct 40.9 MCV 91.5 MCH 31.8 MCHC 34.7 RDW Std Deviation 45.2 RDW Coeff of Neil 13.7 Plt Count 127 L MPV 10.5 H Immature Gran % (Auto) 0.2 Neut % (Auto) 83.7 Lymph % (Auto) 10.0 [place] % (Auto) 5.8 Eos % (Auto) 0.2 Baso % (Auto) 0.1 Immature Gran # (Auto) 0.02 Neut # (Auto) 8.22 H Lymph # (Auto) 0.98 L [place] # (Auto) 0.57 Eos # (Auto) 0.02 Baso # (Auto) 0.01 PT 10.4 INR 1.0 APTT PTT Ratio Sodium 139 Potassium 3.1 L Chloride 107 Carbon Dioxide 24 Anion Gap 8.0 BUN 14 Creatinine 0.81 Est Cr Clr Drug Dosing 79.8 Est GFR ( Amer) 88.3 Est GFR (Non-Af Amer) 76.2 BUN/Creatinine Ratio 16.8 Glucose 122 H Lactate Calcium 9.2 Magnesium 1.8 Total Bilirubin 1.6 H AST 79 H ALT 120 H Alkaline Phosphatase 118 H Troponin I < 0.015 Total Protein 7.6 Albumin 3.4 Globulin 4.2 H Albumin/Globulin Ratio 0.8 L Lipase 74 Urine Color Urine Appearance Urine pH Ur Specific [place] Urine Protein Urine Glucose (UA) Urine Ketones Urine Blood Urine Nitrite Urine Bilirubin Urine Urobilinogen Ur Leukocyte Esterase Urine WBC (Auto) Urine RBC (Auto) U Hyaline Cast (Auto) U Epithel Cells (Auto) Urine Bacteria (Auto) 10/23/18 10/23/18 10/23/18 08:33 08:33 09:21 WBC RBC Hgb Hct MCV MCH MCHC RDW Std Deviation RDW Coeff of Neil Plt Count MPV Immature Gran % (Auto) Neut % (Auto) Lymph % (Auto) [place] % (Auto) Eos % (Auto) Baso % (Auto) Immature Gran # (Auto) Neut # (Auto) Lymph # (Auto) [place] # (Auto) Eos # (Auto) Baso # (Auto) PT INR APTT 27.6 PTT Ratio 1.0 Sodium Potassium Chloride Carbon Dioxide Anion Gap BUN Creatinine Est Cr Clr Drug Dosing Est GFR ( Amer) Est GFR (Non-Af Amer) BUN/Creatinine Ratio Glucose Lactate 1.3 Calcium Magnesium Total Bilirubin AST ALT Alkaline Phosphatase Troponin I Cancelled Total Protein Albumin Globulin Albumin/Globulin Ratio Lipase Urine Color Urine Appearance Urine pH Ur Specific [place] Urine Protein Urine Glucose (UA) Urine Ketones Urine Blood Urine Nitrite Urine Bilirubin Urine Urobilinogen Ur Leukocyte Esterase Urine WBC (Auto) Urine RBC (Auto) U Hyaline Cast (Auto) U Epithel Cells (Auto) Urine Bacteria (Auto) 10/23/18 10:15 WBC RBC Hgb Hct MCV MCH MCHC RDW Std Deviation RDW Coeff of Neil Plt Count MPV Immature Gran % (Auto) Neut % (Auto) Lymph % (Auto) [place] % (Auto) Eos % (Auto) Baso % (Auto) Immature Gran # (Auto) Neut # (Auto) Lymph # (Auto) [place] # (Auto) Eos # (Auto) Baso # (Auto) PT INR APTT PTT Ratio Sodium Potassium Chloride Carbon Dioxide Anion Gap BUN Creatinine Est Cr Clr Drug Dosing Est GFR ( Amer) Est GFR (Non-Af Amer) BUN/Creatinine Ratio Glucose Lactate Calcium Magnesium Total Bilirubin AST ALT Alkaline Phosphatase Troponin I Total Protein Albumin Globulin Albumin/Globulin Ratio Lipase Urine Color Dark Yellow Urine Appearance Cloudy A Urine pH 5.5 Ur Specific [place] 1.031 H Urine Protein 1+ H Urine Glucose (UA) Negative Urine Ketones Trace H Urine Blood 1+ H Urine Nitrite Positive A Urine Bilirubin Negative Urine Urobilinogen Negative Ur Leukocyte Esterase Negative Urine WBC (Auto) 1-5 Urine RBC (Auto) 0-4 U Hyaline Cast (Auto) 5-10 H U Epithel Cells (Auto) >30 H Urine Bacteria (Auto) 2+ H Code Status & VTE Plan Code Status Full code
--- NOTE | 2018-10-23 12:46 | Ultrasound Report ---
BILIARY ULTRASOUND CLINICAL HISTORY: elevated LFTs COMPARISON STUDY: CT scan the abdomen pelvis dated 10/23/2018 FINDINGS: The study is limited from a technical standpoint due to the patient's large body habitus. The pancreas was nonvisualized. The liver is of increased echogenicity consistent with hepatic steato sis. The gallbladder surgically absent. The common bile duct was difficult to visualize but there is no definite ductal dilatation. IMPRESSION: 1. Technically limited study secondary to the patient's large body habitus 2. Surgically absent gallbladder 3. Hepatic steatosis 4. Nonvisualization of the pancreas Electronically signed by: Pipo Cano M.D. 10/23/2018 12:44 PM
[2018-10-23] MEDS ORDERED: POTASSIUM CHLORIDE 10 MEQ TABCR PO STA (13:15)
[2018-10-23] MEDS ORDERED: PIPERACILLIN/TAZOBACTAM 4.5 GM in DEXTROSE 5% 100 ML IV ONE (13:30)
[2018-10-23] MEDS: ACETAMINOPHEN 325 MG TAB PO PRN ×2 (14:06→20:22)
[2018-10-23] MEDS: NSS + 20MEQ KCL 20 MEQ/1,000 ML BAG IV SCH ×2 (14:08→21:00)
[2018-10-23] MEDS ORDERED: XOPENEX/ATROVENT 0.63mg/0.5MG NEB COMBO NEB PRN (14:13)
[2018-10-23] MEDS ORDERED: IPRATROPIUM BROMIDE NEB SOLN 0.02% 2.5 ML VIAL INH PRN (14:15)
[2018-10-23] MEDS ORDERED: LEVALBUTEROL HCL 0.63 MG/3 ML NEB NEB PRN (14:15)
[2018-10-23] MEDS: LIDOCAINE 5% 1 PATCH TD SCH (17:33)
[2018-10-23] MEDS: PIPERACILLIN/TAZOBACTAM 4.5 GM in DEXTROSE 5% 100 ML IV SCH (18:04)
[2018-10-23] MEDS: PANTOprazole 40 MG TAB PO SCH (20:22)
[2018-10-23] MEDS: clonazePAM 0.5 MG TAB PO SCH (20:22)
[2018-10-23] MEDS: SERTRALINE HCL 100 MG TABLET PO SCH (20:23)
[2018-10-23] MEDS: FERROUS SULFATE 325 MG TAB PO SCH (20:23)
[2018-10-23] MEDS: BusPIRone 15 MG TAB PO SCH (20:23)
[2018-10-23] MEDS: SIMVASTATIN 20 MG TAB PO SCH (21:00)
[2018-10-24] MEDS: PIPERACILLIN/TAZOBACTAM 4.5 GM in DEXTROSE 5% 100 ML IV SCH ×3 (01:27→17:28)
[2018-10-24] MEDS: ACETAMINOPHEN 325 MG TAB PO PRN ×2 (01:27→12:25)
[2018-10-24] MEDS: HYDROmorphone INJ 1 MG/ML SYRINGE IV PRN ×4 (01:59→21:16)
[2018-10-24] MEDS: NSS + 20MEQ KCL 20 MEQ/1,000 ML BAG IV SCH ×3 (05:14→23:00)
[2018-10-24] MEDS: LEVOTHYROXINE SODIUM 125 MCG TABLET PO SCH (05:26)
[2018-10-24 06:36] LABS: Hematocrit (blood only) 35.6 % (37-47); Hemoglobin 11.9 g/dL (12.0-16.0); Mean Corpuscular Hgb Conc 33.4 g/dL (32-36); Mean Corpuscular Volume 93.7 fL (80-100); RDW Standard Deviation 47.7 fL (36.4-46.3); White Blood Count 6.19 K/uL (4.8-10.8)
[2018-10-24 06:58] LABS: Basophils # (auto) 0.01 K/uL (0-0.2); Basophils % (auto) 0.2 %; Eosinophils # (auto) 0.13 K/uL (0-0.5); Eosinophils % (auto) 2.1 %; Immature Granulocytes # (auto) 0.02 K/uL (0.00-0.02); Immature Granulocytes % (auto) 0.3 %; Lymphocytes # (auto) 1.02 K/uL (1.2-3.4); Lymphocytes % (auto) 16.5 %; Mean Platelet Volume 10.3 fL (7.4-10.4); Monocytes # (auto) 0.41 K/uL (0.11-0.59); Monocytes % (auto) 6.6 %; Neutrophils % (auto) 74.3 %; Platelet Count 98 K/uL (130-400); Platelet Estimate Decreased (Normal)
[2018-10-24 07:14] LABS: BUN Creatinine Ratio 13.4 (10-20); Calcium 8.6 mg/dl (8.5-10.1); Creatinine Clr Calc Pharmacy 100.2 ml/min; Est GFR (African American) 107.4; Est GFR (Non-African American) 92.7; Potassium 3.2 mmol/L (3.5-5.1)
[2018-10-24] MEDS ORDERED: POTASSIUM CHLORIDE 10 MEQ TABCR PO SCH (09:00)
[2018-10-24] MEDS ORDERED: POTASSIUM CITRATE 10 MEQ TAB PO SCH (09:00)
[2018-10-24] MEDS: LIDOCAINE 5% 1 PATCH TD SCH (09:01)
[2018-10-24] MEDS: DULOXETINE HCL 20 MG CAP PO SCH (09:02)
[2018-10-24] MEDS: FERROUS SULFATE 325 MG TAB PO SCH ×2 (09:03→21:31)
[2018-10-24] MEDS: BusPIRone 15 MG TAB PO SCH ×2 (09:03→21:32)
[2018-10-24] MEDS: POTASSIUM CHLORIDE 10 MEQ TABCR PO SCH ×2 (09:10→21:30)
[2018-10-24 11:51] LABS: Albumin Level 2.9 gm/dl (3.4-5.0); Bilirubin Direct 0.3 mg/dl (0-0.2); Bilirubin,Total 1.3 mg/dl (0.2-1); Total Protein 6.4 gm/dl (6.4-8.2)
[2018-10-24] MEDS: ONDANSETRON INJ 2 MG/ML 2 ML VIAL IV PRN (12:27)
--- NOTE | 2018-10-24 13:33 | Hospitalist Progress Note ---
Date of Service October 24, 2018 Assessment & Plan (1) Right sided abdominal pain: Possible Sepsis from: Acute diverticulitis, Ascending Colon Rule out UTI, pyelonephritis lactic acid normal blood and urine cultures: pending Empiric Zosyn IV day 2 IV NSS at 125 cc/h N.p.o. except for meds, ice chips/sips of water -- will consult GI Diarrhea History of antibiotic use recently Check for C. difficile Right Lower Back Pain possible Spinal Stenosis, Radiculopathy history of back surgery, spinal stimulator placement MRI lumbar spine ordered start Solumedrol IV q8h, Fentanyl patch, PRN Dilaudid pain medications limited as patient has history of hives with Etodolac, altered mental status with Gabapentin pending MRI, will need Ortho and Pain management referral Elevation of LFTs liver ultrasound: (+) hepatic steatosis Monitor liver panel daily COPD Requiring 2 L of nasal cannula nebs every 6 hours May have atelectasis from pain Incentive spirometry ordered Continue usual Brio DVT prophylaxis SCDs for now in light of diverticulitis If with no melena or hematochezia, will start Lovenox Full code as per patient Disposition Anticipate discharge to home medically stable Subjective Follow-up diverticulitis, back pain Seen resting in bed, uncomfortable secondary to right flank lower back pain radiating to her groin Denies weakness or numbness or paresthesias Does report right upper quadrant/epigastric discomfort/burning Still having loose bowel movements, no fevers or chills Denies urinary symptoms No other symptoms Review of Systems Review of Systems: All systems reviewed & are unremarkable except as noted in HPI & below Physical Exam Physical Exam: General- oriented x 3, uncomfortable secondary to pain, speaks in sentences with no effort or accessory muscle use Eyes- anicteric Neck- no JVD Lungs- clear breath sounds bilaterally, no rales/wheezes Heart- normal rate, regular rhythm; no murmurs Abdomen- normal bowel sounds, nondistended, soft, nontender Back-positive severe tenderness right lower back region no erythema/warmth/tenderness Extremities- no pretibial edema, no calf tenderness Neuro- alert, oriented x 3; no gross focal neurologic deficits Skin- warm & dry Results & Data Vital Signs (Past 12 Hours) Vital Signs Temp Pulse Pulse Resp BP Pulse Ox 10/24/18 11:51 37.4 C 89 22 122/71 98 10/24/18 07:16 37.0 C 88 22 134/81 92 10/24/18 07:00 77 10/24/18 05:22 37.0 C 105 H 17 108/52 L 92 Laboratory Results Laboratory Results - last 24 hr 10/24/18 10/24/18 10/24/18 05:44 05:44 05:44 WBC 6.19 RBC 3.80 L Hgb 11.9 L Hct 35.6 L MCV 93.7 MCH 31.3 MCHC 33.4 RDW Std Deviation 47.7 H RDW Coeff of Neil 14.0 Plt Count 98 L MPV 10.3 Immature Gran % (Auto) 0.3 Neut % (Auto) 74.3 Lymph % (Auto) 16.5 [place] % (Auto) 6.6 Eos % (Auto) 2.1 Baso % (Auto) 0.2 Immature Gran # (Auto) 0.02 Neut # (Auto) 4.60 Lymph # (Auto) 1.02 L [place] # (Auto) 0.41 Eos # (Auto) 0.13 Baso # (Auto) 0.01 Platelet Estimate Decreased L Sodium 142 Potassium 3.2 L Chloride 110 H Carbon Dioxide 24 Anion Gap 8.0 BUN 9 D Creatinine 0.66 Est Cr Clr Drug Dosing 100.2 Est GFR ( Amer) 107.4 Est GFR (Non-Af Amer) 92.7 BUN/Creatinine Ratio 13.4 Glucose 88 Calcium 8.6 Total Bilirubin 1.3 H Direct Bilirubin 0.3 H AST 74 H ALT 111 H Alkaline Phosphatase 103 Total Protein 6.4 Albumin 2.9 L
[2018-10-24] MEDS ORDERED: methylPREDNISolone 60 MG in SYRINGE 0 ML IV STA (13:36)
[2018-10-24] MEDS ORDERED: LORazepam 0.5 MG TAB PO ONE (13:38)
[2018-10-24] MEDS: fentaNYL 25 MCG/HR TDSY TD SCH (13:57)
[2018-10-24] MEDS ORDERED: DICYCLOMINE HCL 10 MG CAP PO PRN (14:13)
--- NOTE | 2018-10-24 14:18 | Gastrointestinal Consultation ---
Date of Consultation October 24, 2018 Assessment & Plan (1) Elevated LFTs: (2) Nausea vomiting and diarrhea: (3) Acute diverticulitis: Pt is a 67 y/o female presented w R flank pain radiating to R abd side. On exam is diffusely tender on abd area. She does have pandiverticulosis, but acute ascending colon diverticulitis w/o complication. + R kidney calcification, urine culture negative. Of note, LFTs up also on workup, CT w evidence of hepatic steatosis, she is s/p cholecystectomy - CL diet. - Check stool cx and Cdiff. - Cipro/Flagyl IV antibiotics - Bentyl 10mg TID prn abd pain/cramping. - If increased abd pain should repeat CT to r/o abscess formation - Trend LFTs, if not improved, will consider MRCP to r/o biliary stone - Obtain records from [facility]; f/u w her main chief telephone operator after this admission to determine timing of repeat colonoscopy. Supervising Physician Co-Signing Physician Notes Attending attestation I have seen, examined this patient, and agree with the findings and above by our mid-level provider SAI Kirkland. -Right flank pain with colitis. -Diff dx includes infectious, ischemic, diverticular, possibly stonal disease with stones noted on Right Kidney -IV abx, follow stool studies -Multiple colonoscopies done at OSH, will obtain reports, -If worsens then repeat CT scan and obtain surgical consult and lactate -Follow LFT's if rise, then would check MRCP, but reviewed CT and no signs of biliary obstruction History of Present Illness Reason for Consultation: Diverticulitis, abd pain Requesting Physician: Dr. Marshall Huitron Attending Physician: Dr. Toni Rodriges History of Present Illness Pt is a 67 y/o female w PMHx of COPD, hypothyroidism, IBS, abd hernia s/p mesh placement surgery who presented to ED w c/o worsening R flank pain radiating to R sided abd area. She reported subjective fever, nausea, vomiting. Stools have always been loose. Denies any rectal bleeding. Denies any dysuria. Pain is constant, not worse w eating. She did mention having Amox antibx recently for ear infection. No travels, sick contact otherwise. Upon eval, labs w/o signs of leukocytosis, H/H stable, + mild hypokalemia K 3.2. BUN/Cr normal. LFTs up: Tbili 1.3, Dbili 0.3, AST 75, ALT 111, AP 103. UA suggestive for UTI but urine cx negative. Blood cx obtained, pending. CT abd/pelvis w/o contrast showed pandiverticulosis w acute diverticulitis on ascending colon area. No signs of bowel obstruction, free air or abscess. She also has hepatic steatosis and hepatomegaly. Pt reports hx of several endoscopic procedures at [facility]. Hx of Frey's esophagus on Prilosec at home. Hx of colon polyps, last colonoscopy 3 yrs ago. No hx of colorectal ca. Allergies Allergy/AdvReac Type Severity Reaction Status Date / Time etodolac Allergy Intermediate HIVES Verified 10/23/18 10:26 sumatriptan Allergy HIVES Verified 10/23/18 10:26 acetaminophen AdvReac Intermediate NAUSEA Verified 10/23/18 10:26 oxycodone AdvReac Intermediate NAUSEA Verified 10/23/18 10:26 Home Medications Home Medications Medication Instructions Recorded Confirmed Type acetaminophen [Tylenol Extra 500 mg PO DIRECTED 10/23/18 10/23/18 History Strength] aspirin [Aspirin Low Dose] 162 mg PO DAILY 10/23/18 10/23/18 History buspirone 15 mg PO BID 10/23/18 10/23/18 History calcium carbonate [Calcium 600] 0 mg PO DAILY 10/23/18 10/23/18 History cholecalciferol (vitamin D3) 1,000 unit PO DAILY 10/23/18 10/23/18 History [Vitamin D3] clonazepam 0.5 tab PO HS 10/23/18 10/23/18 History cyanocobalamin (vitamin B-12) 1,000 mcg PO DAILY 10/23/18 10/23/18 History [Vitamin B-12] duloxetine 20 mg PO DAILY 10/23/18 10/23/18 History ferrous sulfate 325 mg PO BID 10/23/18 10/23/18 History fluticasone furoate-vilanterol 1 puff INHALATION DAILY 10/23/18 10/23/18 History [Breo Ellipta] levothyroxine 125 mcg PO QAM 10/23/18 10/23/18 History lisinopril-hydrochlorothiazide 1 tab PO DAILY 10/23/18 10/23/18 History meloxicam 0 mg PO DAILY 10/23/18 10/23/18 History metoprolol succinate 100 mg PO DAILY 10/23/18 10/23/18 History omeprazole 20 mg PO HS 10/23/18 10/23/18 History potassium chloride 0.5 tab PO DAILY 10/23/18 10/23/18 History potassium citrate 10 meq PO DAILY 10/23/18 10/23/18 History sertraline 100 mg PO HS 10/23/18 10/23/18 History simvastatin 20 mg PO HS 10/23/18 10/23/18 History Patient History Medical History COPD (chronic obstructive pulmonary disease) (Chronic) Chronic pain (Chronic) Abdominal hernia (Acute) Family History Other Family history non-contributory Social History Preferred Language: Ukrainian Communication Ability: Effective 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 Beliefs That Will Affect Care: None marital status: Current Living Situation: Spouse current occupational status: unemployed Other Information That Helps Us Care for You: No Feels Safe at Home: Yes Safety Concerns: Feels Safe At This Time Smoking Status: Never smoker Do You Dip or Chew Tobacco: No Second Hand Exposure: No Tobacco Cessation Education Requested by Patient: No Hx Alcohol Use: No Hx Substance Use: Yes substance use type: marijuana Last Used Substance: Days (ago) Last Used Substance Other:: 2 days ago, prescription Review of Systems Review of Systems: All systems reviewed & are unremarkable except as noted in HPI & below Physical Exam Constitutional: WD/WN, vitals as above well groomed and cooperative Eyes: PERRL, conjunctivae normal, anicteric sclerae ENMT: external ear and nose normal, oropharynx normal Respiratory: normal respiratory effort, lungs clear to auscultation Cardiovascular: RRR, no murmur, no edema Gastrointestinal (Abdomen): Inspection/Auscultation: + hypoactive bowel sounds Percussion/Palpation: + abdomen tender (diffuse) and abdomen soft Skin: no rashes, warm and dry no jaundice Neurologic: Motor/Sensory: no asterixis Psychiatric: A+Ox3, euthymic affect Lymphatic: no lymphedema Results & Data Vital Signs (Past 12 Hours) Vital Signs Temp Pulse Pulse Resp BP Pulse Ox 10/24/18 11:51 37.4 C 89 22 122/71 98 10/24/18 07:16 37.0 C 88 22 134/81 92 10/24/18 07:00 77 10/24/18 05:22 37.0 C 105 H 17 108/52 L 92
[2018-10-24] MEDS: CHECK FENTANYL PATCH PLACEMENT SCH ×2 (15:36→23:45)
[2018-10-24] MEDS ORDERED: LORazepam 0.5 MG TAB ONE (19:20)
[2018-10-24] MEDS: clonazePAM 0.5 MG TAB PO SCH (21:29)
[2018-10-24] MEDS: SIMVASTATIN 20 MG TAB PO SCH (21:30)
[2018-10-24] MEDS: SERTRALINE HCL 100 MG TABLET PO SCH (21:30)
[2018-10-24] MEDS: PANTOprazole 40 MG TAB PO SCH (21:30)
[2018-10-24] MEDS: methylPREDNISolone 60 MG in SYRINGE 0 ML IV SCH (21:32)
--- NOTE | 2018-10-24 21:55 | Magnetic Resonance Report ---
MR lumbar spine wo con CLINICAL HISTORY: 67 years-old Female presenting with LOW BACK PAIN right flank pain radiating into t he groin and down the right leg, pain stimulator in the lower back without relief, history of surgery in July, history of skin cancer. TECHNIQUE: Multisequence, multiplanar MR imaging of the lumbar spine was performed without the use of intravenous contrast. IV contrast: None. COMPARISON: Correlation made to CT of abdomen and pelvis from 10/23/2018. FINDINGS: Localizer images: An implanted metallic device is noted in the posterior soft tissues of the back. Susceptibility artifact arising from the implanted medical educator degrades image quality. Allowing fo r this, normal lumbar lordosis. Vertebral bodies maintain normal height, alignment, bone marrow signa l intensity. Intervertebral discs preserved with the exception of trace disc bulge at L3-4. This does not significantly efface the spinal canal. However, there is also an annular fissure with focal disc protrusion at the level of the right neural foramen. Effacement of the bilateral neural foramen at t his level, severe on the right and mild to moderate on the left. There is also associated mild facet arthropathy at L3-4. Mass effect on the exiting right L3 nerve root. There is associated atrophy of p araspinal musculature suggested chronicity and denervation. Facet arthropathy noted at L4-5 greater o n the left. Mild bilateral neural foraminal narrowing is noted at L4-5. No acute fracture or subluxat ion. No bony edema. No gross evidence of an epidural collection. Spinal cord terminates in good posit ion at L1. Cauda equina normal morphology. T2 flow voids within the vasculature preserved. Fatty atrophy of paraspinal musculature on the right at the level of L3-4 as mentioned above. Musculature otherwise normal. IMPRESSION: 1. Severe right neural foraminal narrowing at L3-4. Mass effect on the exiting right L3 nerve root p redominantly arising from the L3-4 disc. Atrophy of paraspinal musculature on the right at the level of L3-4 suggests chronicity and a chronic denervation injury. 2. Additional lesser degenerative changes as above. Electronically signed by: Julio Bravo M.D. 10/24/2018 9:53 PM
[2018-10-25] MEDS: PIPERACILLIN/TAZOBACTAM 4.5 GM in DEXTROSE 5% 100 ML IV SCH ×3 (02:12→17:48)
[2018-10-25] MEDS: HYDROmorphone INJ 1 MG/ML SYRINGE IV PRN ×3 (02:34→23:08)
[2018-10-25] MEDS: methylPREDNISolone 60 MG in SYRINGE 0 ML IV SCH ×3 (05:18→20:50)
[2018-10-25] MEDS: ACETAMINOPHEN 325 MG TAB PO PRN (05:21)
[2018-10-25] MEDS: LEVOTHYROXINE SODIUM 125 MCG TABLET PO SCH (05:22)
[2018-10-25 05:53] LABS: Basophils # (auto) 0.01 K/uL (0-0.2); Basophils % (auto) 0.1 %; Eosinophils # (auto) 0.01 K/uL (0-0.5); Eosinophils % (auto) 0.1 %; Hematocrit (blood only) 36.2 % (37-47); Hemoglobin 12.4 g/dL (12.0-16.0); Immature Granulocytes # (auto) 0.07 K/uL (0.00-0.02); Lymphocytes % (auto) 13.5 %; Mean Corpuscular Hgb Conc 34.3 g/dL (32-36); Mean Corpuscular Volume 92.1 fL (80-100); Mean Platelet Volume 10.4 fL (7.4-10.4); Monocytes # (auto) 0.23 K/uL (0.11-0.59); Monocytes % (auto) 3.4 %; Neutrophils # (auto) 5.47 K/uL (1.4-6.5); Neutrophils % (auto) 81.9 %; Platelet Count 128 K/uL (130-400); RDW Coefficient of Variation 13.5 % (11.5-14.5); RDW Standard Deviation 45.6 fL (36.4-46.3); Red Blood Count 3.93 M/uL (4.2-5.4); White Blood Count 6.69 K/uL (4.8-10.8)
[2018-10-25 06:42] LABS: Albumin Level 3.1 gm/dl (3.4-5.0); BUN Creatinine Ratio 11.2 (10-20); Bilirubin Direct 0.2 mg/dl (0-0.2); Bilirubin,Total 0.8 mg/dl (0.2-1); Calcium 8.9 mg/dl (8.5-10.1); Est GFR (African American) 112.7; Est GFR (Non-African American) 97.3; Total Protein 7.2 gm/dl (6.4-8.2)
[2018-10-25] MEDS: CHECK FENTANYL PATCH PLACEMENT SCH ×2 (07:31→16:17)
[2018-10-25] MEDS: DULOXETINE HCL 20 MG CAP PO SCH (07:32)
[2018-10-25] MEDS: BusPIRone 15 MG TAB PO SCH ×2 (07:32→20:51)
[2018-10-25] MEDS: FERROUS SULFATE 325 MG TAB PO SCH ×2 (07:32→20:51)
[2018-10-25] MEDS: LIDOCAINE 5% 1 PATCH TD SCH (07:32)
[2018-10-25] MEDS: POTASSIUM CHLORIDE 10 MEQ TABCR PO SCH ×2 (07:32→20:52)
[2018-10-25] MEDS: NSS + 20MEQ KCL 20 MEQ/1,000 ML BAG IV SCH ×3 (08:01→22:00)
--- NOTE | 2018-10-25 09:05 | Gastroenterology Progress Note ---
Date of Service October 25, 2018 Assessment & Plan (1) Elevated LFTs: (2) Nausea vomiting and diarrhea: (3) Acute diverticulitis: Pt is a 67 y/o female presented w R flank pain radiating to R abd side. On exam is diffusely tender on abd area. She does have pandiverticulosis, but acute ascending colon diverticulitis w/o complication. + R kidney calcification, urine culture negative. Of note, LFTs up also on workup, CT w evidence of hepatic steatosis, she is s/p cholecystectomy Today abd pain a bit better, mild nausea w/o vomiting and tolerating CL diet, + loose BMs but no rectal bleeding. LFTs trending down - FL diet; advance as tolerated. - F/U stool cx and Cdiff. - Cipro/Flagyl IV antibiotics - Bentyl 10mg TID - If increased abd pain should repeat CT to r/o abscess formation - Obtain records from [facility]; f/u w her main metal neutralizer after this admission to determine timing of repeat colonoscopy. Supervising Physician Co-Signing Physician Notes Attending attestation I have seen, examined this patient, and agree with the findings and above by our mid-level provider SAI Kirkland. -Patient is improved from a GI standpoint with treatment of the colitis/diverticulitis. Continue IV antibiotics and advance diet as tolerated. Musculoskeletal/neuro work-up can proceed without interruption Subjective Pt still w some abd pain but improved a bit, mild nausea no vomiting. Tolerated CL diet, wanted to try a bit more solid. Had loose BMs w/o rectal bleeding this AM. Noted LFTs trending down. Blood cx negative Stool cx and Cdiff pending Review of Systems Review of Systems: All systems reviewed & are unremarkable except as noted in HPI & below Physical Exam Constitutional: WD/WN, vitals as above well groomed and cooperative Eyes: PERRL, conjunctivae normal, anicteric sclerae ENMT: external ear and nose normal, oropharynx normal Respiratory: normal respiratory effort, lungs clear to auscultation Cardiovascular: RRR, no murmur, no edema Gastrointestinal (Abdomen): Inspection/Auscultation: + hypoactive bowel sounds Percussion/Palpation: + abdomen tender (diffuse) and abdomen soft Skin: no rashes, warm and dry no jaundice Neurologic: Motor/Sensory: no asterixis Psychiatric: A+Ox3, euthymic affect Lymphatic: trace edema on bilateral LE Results & Data Vital Signs (Past 12 Hours) Vital Signs Temp Pulse Pulse Resp BP Pulse Ox 10/25/18 08:00 59 L 10/25/18 07:34 36.8 C 61 18 129/81 94 10/25/18 05:11 36.4 C L 62 18 124/76 94 10/25/18 03:31 90 10/24/18 23:15 36.4 C L 62 20 133/81 93
--- NOTE | 2018-10-25 10:51 | Hospitalist Progress Note ---
Date of Service October 25, 2018 Assessment & Plan (1) Right sided abdominal pain: Possible Sepsis from: Acute diverticulitis, Ascending Colon Rule out UTI, pyelonephritis lactic acid normal blood and urine cultures: negative Empiric Zosyn IV day 3 IV NSS at 60 cc/h N.p.o. except for meds, ice chips/sips of water -- GI consulted Bentyl added will need colonoscopy after episode of diverticulitis Diarrhea History of antibiotic use recently Check for C. difficile improving Right Lower Back Pain possible Spinal Stenosis, Radiculopathy history of back surgery, spinal stimulator placement MRI lumbar spine ordered: severe foraminal stenosis l3-l4 continue Day 2 Solumedrol IV q8h, Fentanyl patch, PRN Dilaudid pain medications limited as patient has history of hives with Etodolac, altered mental status with Gabapentin -- discussed with Dr. Soto, recommend Decompression/Fusion tomorrow no medical contraindication for planned surgery patient moderate risk for cardio-pulmonary complications perioperatively discussed with patient and her family, they are agreeable, understanding, comfortable with plan of care Elevation of LFTs liver ultrasound: (+) hepatic steatosis Monitor liver panel daily COPD Requiring 2 L of nasal cannula nebs every 6 hours May have atelectasis from pain Incentive spirometry ordered Continue usual Brio wean off o2 accordingly DVT prophylaxis SCDs for now in light of diverticulitis, planned surgery tomorrow Full code as per patient Disposition Anticipate discharge to home medically stable Subjective ff up for diverticulitis, intractable low back pain seen resting in chair, not in distress states she still has low back pain- 8/10, persistent mild r sided abdominal pain less diarrhea no other symptoms Review of Systems Review of Systems: All systems reviewed & are unremarkable except as noted in HPI & below Physical Exam Physical Exam: General- oriented x 3, not in distress, speaks in sentences with no effort or accessory muscle use Eyes- anicteric Neck- no JVD Lungs- clear BS BL Heart- normal rate, regular rhythm; no murmurs Abdomen- normal bowel sounds, nondistended, soft, nontender Extremities- mild pretibial edema, no calf tenderness Back- (+) tenderness lower bacl Neuro- alert, oriented x 3; no gross focal neurologic deficits Skin- warm & dry Results & Data Vital Signs (Past 12 Hours) Vital Signs Temp Pulse Pulse Resp BP Pulse Ox 10/25/18 08:00 59 L 10/25/18 07:34 36.8 C 61 18 129/81 94 10/25/18 05:11 36.4 C L 62 18 124/76 94 10/25/18 03:31 90 10/24/18 23:15 36.4 C L 62 20 133/81 93 Laboratory Results Laboratory Results - last 24 hr 10/25/18 10/25/18 10/25/18 05:32 05:32 08:40 WBC 6.69 RBC 3.93 L Hgb 12.4 Hct 36.2 L MCV 92.1 MCH 31.6 MCHC 34.3 RDW Std Deviation 45.6 RDW Coeff of Neil 13.5 Plt Count 128 L MPV 10.4 Immature Gran % (Auto) 1.0 Neut % (Auto) 81.9 Lymph % (Auto) 13.5 [place] % (Auto) 3.4 Eos % (Auto) 0.1 Baso % (Auto) 0.1 Immature Gran # (Auto) 0.07 H Neut # (Auto) 5.47 Lymph # (Auto) 0.90 L [place] # (Auto) 0.23 Eos # (Auto) 0.01 Baso # (Auto) 0.01 Sodium 138 Potassium 4.0 D Chloride 107 Carbon Dioxide 26 Anion Gap 5.0 BUN 6 L Creatinine 0.57 L Est Cr Clr Drug Dosing 116.0 Est GFR ( Amer) 112.7 Est GFR (Non-Af Amer) 97.3 BUN/Creatinine Ratio 11.2 Glucose 139 H Calcium 8.9 Total Bilirubin 0.8 D Direct Bilirubin 0.2 AST 42 H ALT 88 H Alkaline Phosphatase 107 Total Protein 7.2 Albumin 3.1 L Stl C. diff Tox B Gene Negative Cdiff Gene
[2018-10-25] MEDS: METOPROLOL SUCC 25MG EXT REL TAB PO SCH (11:02)
[2018-10-25] MEDS: DICYCLOMINE HCL 10 MG CAP PO SCH ×2 (14:23→20:50)
[2018-10-25] MEDS: SIMVASTATIN 20 MG TAB PO SCH (20:52)
[2018-10-25] MEDS: PANTOprazole 40 MG TAB PO SCH (20:52)
[2018-10-25] MEDS: SERTRALINE HCL 100 MG TABLET PO SCH (20:52)
[2018-10-25] MEDS: clonazePAM 0.5 MG TAB PO SCH (21:01)
[2018-10-26] MEDS: CHECK FENTANYL PATCH PLACEMENT SCH ×4 (00:19→23:30)
[2018-10-26] MEDS: PIPERACILLIN/TAZOBACTAM 4.5 GM in DEXTROSE 5% 100 ML IV SCH ×2 (01:37→10:13)
[2018-10-26] MEDS: methylPREDNISolone 60 MG in SYRINGE 0 ML IV SCH ×2 (04:45→20:10)
[2018-10-26] MEDS: LEVOTHYROXINE SODIUM 125 MCG TABLET PO SCH (06:09)
[2018-10-26 06:19] LABS: Basophils # (auto) 0.01 K/uL (0-0.2); Basophils % (auto) 0.1 %; Hematocrit (blood only) 35.4 % (37-47); Immature Granulocytes # (auto) 0.08 K/uL (0.00-0.02); Immature Granulocytes % (auto) 1.1 %; Lymphocytes # (auto) 1.05 K/uL (1.2-3.4); Mean Corpuscular Hgb Conc 33.9 g/dL (32-36); Mean Corpuscular Volume 93.2 fL (80-100); Mean Platelet Volume 10.7 fL (7.4-10.4); Monocytes # (auto) 0.36 K/uL (0.11-0.59); Monocytes % (auto) 5.2 %; Neutrophils # (auto) 5.48 K/uL (1.4-6.5); Neutrophils % (auto) 78.6 %; Platelet Count 124 K/uL (130-400); RDW Coefficient of Variation 13.8 % (11.5-14.5); RDW Standard Deviation 46.9 fL (36.4-46.3); White Blood Count 6.98 K/uL (4.8-10.8)
[2018-10-26 06:56] LABS: Bilirubin Direct 0.1 mg/dl (0-0.2); Calcium 9.3 mg/dl (8.5-10.1); Creatinine Clr Calc Pharmacy 94.1 ml/min; Est GFR (African American) 103.6; Est GFR (Non-African American) 89.4; Potassium 4.5 mmol/L (3.5-5.1)
[2018-10-26 06:59] LABS: Bilirubin,Total 0.5 mg/dl (0.2-1); Total Protein 6.6 gm/dl (6.4-8.2)
--- NOTE | 2018-10-26 07:45 | Orthopedic Consultation ---
Date of Consultation October 26, 2018 Assessment & Plan (1) Lumbar disc herniation with radiculopathy: This time she is quite uncomfortable we have a clear etiology for her limitation and pain with a massive far lateral disc herniation occupying the neural foramen at L3-4 on the right. This is consistent with her physical exam and complaints. In light of her severe neuro deficits I would recommend urgent decompression of the nerve root. This would require a lumbar decompression complete facetectomy at L3-4 on the right for adequate and safe decompression of the nerve and removal of the disc. Subsequently we would fuse this level. Risk benefits pros cons and alternatives were outlined in detail. Risks include but not limited to from anesthesia blindness stroke paralysis nerve damage blood loss current transfusion infection requiring reoperation. Benefits would hopefully be improvement of her pain and with time return of some of her strength deficits. She is n.p.o. more hoping for surgery today. Present on Admission?: Yes History of Present Illness Reason for Consultation: Back and right leg pain with weakness Attending Physician: Azar Mims MD History of Present Illness This is a 67-year-old female that had a steady decline in status over the past year with a marked decline over the past several weeks. She has pain in the back right buttock anterior thigh to the knee. It is been incapacitating in nature. She is undergone extensive work-up including extensive abdominal work- up to explain her discomfort. An MRI obtained 2 days ago confirms the etiology. She presents with marked strength deficit of the right hip flexor and quadricep and limited ability to ambulate and undergo activities of daily living. Allergies Allergy/AdvReac Type Severity Reaction Status Date / Time etodolac Allergy Intermediate HIVES Verified 10/23/18 10:26 sumatriptan Allergy HIVES Verified 10/23/18 10:26 acetaminophen AdvReac Intermediate NAUSEA Verified 10/23/18 10:26 oxycodone AdvReac Intermediate NAUSEA Verified 10/23/18 10:26 Home Medications Home Medications Medication Instructions Recorded Confirmed Type acetaminophen [Tylenol Extra 500 mg PO DIRECTED 10/23/18 10/23/18 History Strength] aspirin [Aspirin Low Dose] 162 mg PO DAILY 10/23/18 10/23/18 History buspirone 15 mg PO BID 10/23/18 10/23/18 History calcium carbonate [Calcium 600] 0 mg PO DAILY 10/23/18 10/23/18 History cholecalciferol (vitamin D3) 1,000 unit PO DAILY 10/23/18 10/23/18 History [Vitamin D3] clonazepam 0.5 tab PO HS 10/23/18 10/23/18 History cyanocobalamin (vitamin B-12) 1,000 mcg PO DAILY 10/23/18 10/23/18 History [Vitamin B-12] duloxetine 20 mg PO DAILY 10/23/18 10/23/18 History ferrous sulfate 325 mg PO BID 10/23/18 10/23/18 History fluticasone furoate-vilanterol 1 puff INHALATION DAILY 10/23/18 10/23/18 History [Breo Ellipta] levothyroxine 125 mcg PO QAM 10/23/18 10/23/18 History lisinopril-hydrochlorothiazide 1 tab PO DAILY 10/23/18 10/23/18 History meloxicam 0 mg PO DAILY 10/23/18 10/23/18 History metoprolol succinate 100 mg PO DAILY 10/23/18 10/23/18 History omeprazole 20 mg PO HS 10/23/18 10/23/18 History potassium chloride 0.5 tab PO DAILY 10/23/18 10/23/18 History potassium citrate 10 meq PO DAILY 10/23/18 10/23/18 History sertraline 100 mg PO HS 10/23/18 10/23/18 History simvastatin 20 mg PO HS 10/23/18 10/23/18 History Patient History Medical History COPD (chronic obstructive pulmonary disease) (Chronic) Chronic pain (Chronic) Abdominal hernia (Acute) Family History Other Family history non-contributory Social History Preferred Language: Turkmen Communication Ability: Effective [employer] Executive Required: No Beliefs That Will Affect Care: None marital status: Current Living Situation: Spouse current occupational status: unemployed Other Information That Helps Us Care for You: No Feels Safe at Home: Yes Safety Concerns: Feels Safe At This Time Smoking Status: Never smoker Do You Dip or Chew Tobacco: No Second Hand Exposure: No Tobacco Cessation Education Requested by Patient: No Hx Alcohol Use: No Hx Substance Use: Yes substance use type: marijuana Last Used Substance: Days (ago) Last Used Substance Other:: 2 days ago, prescription Physical Exam Physical Exam: On exam she is in obvious distress. She seen up the bedside. She has at best 3/5 right quadriceps and hip flexor. Her right plantar flexion dorsiflexion is a 5 or 5 is her left it is 5/5 the detailed testing. She has marked sensory deficits of the right anterior thigh compared to the left. She has significant tension signs with straight leg raising on the right negative on the left. Results & Data Vital Signs (Past 12 Hours) Vital Signs Temp Pulse Pulse Resp BP Pulse Ox 10/26/18 07:28 36.6 C 69 20 138/83 94 10/26/18 07:26 60 10/26/18 04:00 36.4 C L 66 18 130/69 92 10/26/18 00:00 58 L 10/25/18 23:18 36.6 C 56 L 20 116/75 94 10/25/18 19:48 37.0 C 72 18 122/76 94
[2018-10-26] MEDS: FERROUS SULFATE 325 MG TAB PO SCH (08:05)
[2018-10-26] MEDS: DICYCLOMINE HCL 10 MG CAP PO SCH ×3 (08:06→20:27)
[2018-10-26] MEDS: METOPROLOL SUCC 25MG EXT REL TAB PO SCH (08:06)
[2018-10-26] MEDS: DULOXETINE HCL 20 MG CAP PO SCH (08:06)
[2018-10-26] MEDS: BusPIRone 15 MG TAB PO SCH ×2 (08:07→20:27)
[2018-10-26] MEDS: POTASSIUM CHLORIDE 10 MEQ TABCR PO SCH (08:07)
[2018-10-26] MEDS: LIDOCAINE 5% 1 PATCH TD SCH (08:08)
[2018-10-26] MEDS: NSS + 20MEQ KCL 20 MEQ/1,000 ML BAG IV SCH (08:10)
--- NOTE | 2018-10-26 08:12 | Anesthesiology Consultation ---
Date of Service October 26, 2018 Patient turned spinal cord stimulator off prior to surgery. Assessment & Plan (1) Encounter for pre-operative examination: Chart Review Chart Review: Acceptable Risk for Surgery History Surgery Operation Date: 10/26/18 12:35 Proposed Procedures p L3-L4 Lumbar Decompression and Fusion, with Instrumentation - Kirby Soto DO Height/Weight Height: 5 ft 3 in Weight: 110.1 kg Allergies Allergy/AdvReac Type Severity Reaction Status Date / Time etodolac Allergy Intermediate HIVES Verified 10/23/18 10:26 sumatriptan Allergy HIVES Verified 10/23/18 10:26 acetaminophen AdvReac Intermediate NAUSEA Verified 10/23/18 10:26 oxycodone AdvReac Intermediate NAUSEA Verified 10/23/18 10:26 Medications Home Medications Medication Instructions Recorded Confirmed Last Taken acetaminophen [Tylenol Extra 500 mg PO DIRECTED 10/23/18 10/23/18 Unknown Strength] aspirin [Aspirin Low Dose] 162 mg PO DAILY 10/23/18 10/23/18 Unknown buspirone 15 mg PO BID 10/23/18 10/23/18 Unknown calcium carbonate [Calcium 600] 0 mg PO DAILY 10/23/18 10/23/18 Unknown cholecalciferol (vitamin D3) 1,000 unit PO DAILY 10/23/18 10/23/18 Unknown [Vitamin D3] clonazepam 0.5 tab PO HS 10/23/18 10/23/18 Unknown cyanocobalamin (vitamin B-12) 1,000 mcg PO DAILY 10/23/18 10/23/18 Unknown [Vitamin B-12] duloxetine 20 mg PO DAILY 10/23/18 10/23/18 Unknown ferrous sulfate 325 mg PO BID 10/23/18 10/23/18 Unknown fluticasone furoate-vilanterol 1 puff INHALATION DAILY 10/23/18 10/23/18 Unknown [Breo Ellipta] levothyroxine 125 mcg PO QAM 10/23/18 10/23/18 Unknown lisinopril-hydrochlorothiazide 1 tab PO DAILY 10/23/18 10/23/18 Unknown meloxicam 0 mg PO DAILY 10/23/18 10/23/18 Unknown metoprolol succinate 100 mg PO DAILY 10/23/18 10/23/18 Unknown omeprazole 20 mg PO HS 10/23/18 10/23/18 Unknown potassium chloride 0.5 tab PO DAILY 10/23/18 10/23/18 Unknown potassium citrate 10 meq PO DAILY 10/23/18 10/23/18 Unknown sertraline 100 mg PO HS 10/23/18 10/23/18 Unknown simvastatin 20 mg PO HS 10/23/18 10/23/18 Unknown Active Medications Generic Name Dose Route Start Last Admin Trade Name Freq PRN Reason Stop Dose Admin Acetaminophen 650 mg 10/23/18 11:07 10/25/18 05:21 Tylenol PO 11/22/18 11:06 650 mg Q4H PRN Administration Pain or Fever Buspirone HCl 15 mg 10/23/18 21:00 10/26/18 08:07 Buspar PO 11/22/18 20:59 15 mg BID KAILA Administration Clonazepam 0.25 mg 10/23/18 21:00 10/25/18 21:01 Klonopin PO 11/22/18 20:59 0.25 mg HS KAILA Administration Dicyclomine HCl 10 mg 10/25/18 14:00 10/26/18 08:06 Bentyl PO 11/24/18 13:59 10 mg TID KAILA Administration Duloxetine HCl 20 mg 10/24/18 09:00 10/26/18 08:06 Cymbalta PO 11/23/18 08:59 20 mg DAILY KAILA Administration Fentanyl 25 mcg 10/24/18 14:00 10/24/18 13:57 Duragesic TD 11/07/18 13:59 25 mcg Q3D KAILA Administration Ferrous Sulfate 325 mg 10/23/18 21:00 10/26/18 08:05 Feosol PO 11/22/18 20:59 325 mg BID KAILA Administration Hydromorphone HCl 1 mg 10/24/18 13:25 10/25/18 23:08 Dilaudid IV 11/06/18 12:13 1 mg Q3H PRN Administration Pain Piperacillin Sod/Tazobactam 120 mls @ 30 mls/hr 10/23/18 18:00 10/26/18 10:13 Sod 4.5 gm/ Dextrose IV 11/02/18 17:59 30 mls/hr Q8H KAILA Administration Protocol Methylprednisolone 60 mg/ 0.96 mls @ 1.5 mls/min 10/24/18 21:00 10/26/18 04:45 Syringe IV 11/23/18 20:59 1.5 mls/min Q8H KAILA Administration Levothyroxine Sodium 125 mcg 10/24/18 06:30 10/26/18 06:09 Synthroid PO 11/23/18 06:29 Not Given DAILYBB KAILA Lidocaine 1 patch 10/23/18 15:30 10/26/18 08:08 Lidoderm 5% TD 11/22/18 15:29 Not Given QAM KAILA Metoprolol Succinate 25 mg 10/25/18 10:30 10/26/18 08:06 Toprol Xl PO 11/24/18 10:29 25 mg QAM KAILA Administration Miscellaneous 1 ea 10/23/18 16:00 10/26/18 07:36 Order Awaiting Action N/A 11/22/18 15:59 Not Given QS KAILA Miscellaneous 1 ea 10/23/18 21:00 10/25/18 20:49 Remove Lidoderm Patch N/A 11/22/18 20:59 1 ea DAILY@2100 KAILA Administration Miscellaneous 1 ea 10/24/18 16:00 10/26/18 08:08 Fentanyl Patch Check Placement N/A 11/23/18 15:59 1 ea QS KAILA Administration Ondansetron HCl 4 mg 10/23/18 11:11 10/24/18 12:27 Zofran IV 11/22/18 11:10 4 mg Q6H PRN Administration Nausea Pantoprazole Sodium 40 mg 10/23/18 21:00 10/25/18 20:52 Protonix PO 11/22/18 20:59 40 mg HS KAILA Administration Potassium Chloride 40 meq 10/24/18 09:00 10/26/18 08:07 Klor-Con M10 PO 11/23/18 08:59 40 meq BID KAILA Administration Sertraline HCl 100 mg 10/23/18 21:00 10/25/18 20:52 Zoloft PO 11/22/18 20:59 100 mg HS KAILA Administration Simvastatin 20 mg 10/23/18 21:00 10/25/18 20:52 Zocor PO 11/22/18 20:59 20 mg HS KAILA Administration NPO Date Last Intake of Fluids: 10/25/18 Time Last Intake of Fluids: 23:50 Date Last Intake of Solids: 10/26/18 Past Medical History Medical History Lumbar disc herniation with radiculopathy COPD (chronic obstructive pulmonary disease) (Chronic) Chronic pain (Chronic) Abdominal hernia (Acute) Diverticulitis Elevated LFTs GI bleed 2017 secondary to NSAID use Hypertension Hypothyroid Nephrolithiasis AMBER on CPAP 2L 02 at night Radiculopathy Right lower extremity Skin cancer Past Family History Family History Other Family history non-contributory Past Surgical History Surgical History S/P insertion of spinal cord stimulator Social History Smoking Status: Never smoker Do You Dip or Chew Tobacco: No Hx Alcohol Use: No Hx Substance Use: Yes substance use type: marijuana Last Used Substance: Days (ago) Last Used Substance Other:: 2 days ago, prescription Physical Exam Vital Signs Last Vital Signs Temp 37.0 C 10/26/18 10:51 Pulse 61 10/26/18 10:51 Resp 20 10/26/18 10:51 BP 136/66 10/26/18 10:51 Pulse Ox 94 10/26/18 10:51 Testing Electrocardiogram Date: 10/23/18 Sinus tachycardia Possible Inferior infarct (cited on or before 15-JAN-2013) Nonspecific ST abnormality Abnormal ECG When compared with ECG of 15-JAN-2013 10:02, Nonspecific T wave abnormality now evident in Lateral leads Confirmed by Melquiades Feldman ([id number]) on 10/23/2018 7:44:49 PM Chest X-Ray Date: 10/23/18 IMPRESSION: 1. Slight elevation of the interstitium. Mild pulmonary vascular congestion versus artifact secondary to large body habitus. 2. No evidence of focal pulmonary consolidation Laboratory Results 10/26/18 05:59 10/26/18 05:59 PT 10.4 Seconds (9.0-12.0) 10/23/18 08:33 INR 1.0 (0.9-1.1) 10/23/18 08:33 APTT 27.6 Seconds (21.0-31.0) 10/23/18 08:33 Dark Yellow 10/23/18 10:15 Cloudy (Clear) A 10/23/18 10:15 5.5 (4.5-7.5) 10/23/18 10:15 Ur Specific [place] 1.031 (1.000-1.030) H 10/23/18 10:15 1+ (Negative) H 10/23/18 10:15 Negative (Negative) 10/23/18 10:15 Trace (Negative) H 10/23/18 10:15 Positive (Negative) A 10/23/18 10:15 Ur Leukocyte Esterase Negative (Negative) 10/23/18 10:15 1-5 /hpf (0-5) 10/23/18 10:15 0-4 /hpf (0-4) 10/23/18 10:15 U Hyaline Cast (Auto) 5-10 /lpf (0-5) H 10/23/18 10:15 U Epithel Cells (Auto) >30 /lpf (0-5) H 10/23/18 10:15 2+ (Negative) H 10/23/18 10:15 Blood Type O Positive 10/26/18 08:42 Antibody Screen NEGATIVE 10/26/18 08:42 10/23/18 10:15 Urine Culture - Final Urine,Clean Catch Three types or organisms present, all moderate counts probable skin radha. No further identifications or sensitivities to follow. 10/23/18 09:00 Blood Culture - Preliminary Blood No growth to date. 10/23/18 08:33 Blood Culture - Preliminary Blood No growth to date.
[2018-10-26] MEDS ORDERED: ONDANSETRON INJ 2 MG/ML 2 ML VIAL IV PRN (11:33)
[2018-10-26] MEDS ORDERED: ATROPINE SULFATE 0.1 MG/ML 10ML SYR IV PRN (11:33)
[2018-10-26] MEDS ORDERED: ePHEDrine sulfate 50 MG/ML AMP IV PRN (11:33)
[2018-10-26] MEDS ORDERED: ALBUT/IPRATROP 3MG/0.5MG NEB 3 ML VIAL NEB ONE (11:33)
[2018-10-26] MEDS ORDERED: fentaNYL citrate 100 MCG/2 ML VIAL ONE ×4 (11:36→14:00)
[2018-10-26] MEDS ORDERED: MIDAZOLAM HCL 1 MG/ML 2ML VIAL ONE (11:36)
--- NOTE | 2018-10-26 11:48 | History & Physical Bridge Note ---
Date of Service October 26, 2018 History & Physical Bridge Note I have examined the patient, reviewed the History & Physical and in the interval since the performance of the History & Physical I have noted the following changes of clinical significance: no changes noted
[2018-10-26] MEDS ORDERED: BUPIVACAINE/EPINEPHRINE 0.5% MPF 1:200,000 30 ML VIAL ONE (12:09)
[2018-10-26] MEDS ORDERED: BACITRACIN INJ 50,000 UNIT VIAL ONE (12:09)
[2018-10-26] MEDS ORDERED: CEFAZOLIN 250 MG/ML 1 GM VIAL ONE (13:24)
[2018-10-26] MEDS ORDERED: ONDANSETRON INJ 2 MG/ML 2 ML VIAL ONE (13:24)
[2018-10-26] MEDS ORDERED: DEXAMETHASONE SOD INJ 4 MG/ML VIAL ONE ×2 (13:24→13:46)
[2018-10-26] MEDS ORDERED: NEOSTIGMINE METHYLSULFATE 1 MG/ML 10ML VIAL ONE (13:24)
[2018-10-26] MEDS ORDERED: LIDOCAINE HCL 2% 2 ML VIAL/AMP(20MG/ML) INFIL ONE (13:24)
[2018-10-26] MEDS ORDERED: PROPOFOL IV EMULSION 10 MG/ML 20 ML VIAL IV ONE (13:24)
[2018-10-26] MEDS ORDERED: PHENYLEPHRINE 100MCG/ML 5ML SYR ONE ×2 (13:24→13:46)
[2018-10-26] MEDS ORDERED: GLYCOPYRROLATE 0.2 MG/ML VIAL ONE (13:24)
[2018-10-26] MEDS ORDERED: ROCURONIUM BROMIDE 10 MG/ML 5 ML VIAL ONE (13:24)
[2018-10-26] MEDS ORDERED: CEFAZOLIN 2000MG 2,000 MG/15 ML SYR IV ONE (13:27)
[2018-10-26] MEDS ORDERED: HYDROmorphone INJ 2 MG/ML SYR/VIAL ONE (13:40)
[2018-10-26] MEDS ORDERED: PROPOFOL IV EMULSION 10 MG/ML 100 ML VIAL IV ONE (13:41)
[2018-10-26] MEDS ORDERED: FLOSEAL HEMOSTATIC MATRIX 10ML TOP ONE (14:00)
[2018-10-26] MEDS ORDERED: ALBUTEROL HFA INHALER 8.5 GM ONE (14:02)
--- NOTE | 2018-10-26 14:13 | Fluoroscopy Report ---
FL lumbar spine 2-3V CLINICAL HISTORY: 67 years-old Female presenting with LUMBAR. TECHNIQUE: 2 fluoroscopic image(s) recorded as part of an intraoperative procedure. COMPARISON: MR from 10/24/2018. FINDINGS/IMPRESSION: Bilateral transpedicular screw and snow fixation of L3-4 with interbody spacer and laminectomy defect. Please see surgical report for further details. Fluoroscopy dosage (mGy): 13.09. Fluoroscopy time: 13.2 seconds. Number or time of high level fluoroscopy (HLF), digital spot, or digital subtraction images: 0. Electronically signed by: Julio Bravo M.D. 10/26/2018 2:11 PM
--- NOTE | 2018-10-26 14:23 | Operative Report ---
Post Operative Report Pre & Post Diagnosis Operation Date: 10/26/18 12:35 Pre-Op Diagnosis: 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 Morbid obesity Post-Op Diagnosis: Same Procedure Operation Date: 10/26/18 12:35 Actual Procedures #1 lumbar decompression bilateral medial facetectomies foraminotomies L2-3 L3-4. #2 posterior spinal fusion L3-4. #3 placement posterior instrumentation L3-4. #4 interbody fusion L3-4. #5 placement of peek cage 12 x 22 mm L3-4. #6 placement of local autograft in the posterior lateral gutters per #7 placement infuse collagen sponge bone mass graft in the posterior lateral gutters and ostial amp and interbody space. Surgeon Kirby Soto, DO Customer Expert Jael Kessler Estimated Blood Loss 225 Findings See Below Patient is 5 foot 3 inches and 110 kg with a BMI of 43. The patient's morbid obesity contributed to significant technical difficulty and increase in operative time of at least 30 to 40%. Specimens None Indications This is a 67-year-old female that presents the to the hospital with a marked decline in status with right sided flank and buttock pain and right leg weakness. This was described as chronic in nature with a marked increase in pain and significant weakness to the right quadricep. Imaging obtained demonstrated a massive far lateral disc herniation with severe foraminal encroachment and displacement of the exiting L3 nerve root. Subsequently we elected to undergo urgent lumbar decompression fusion when she was stabilized from a medical and GI perspective. Description of Procedure Patient was met with identified and informed consent obtained. She was then taken to the operative suite underwent ablation placed in a prone position the Alfred table on top of the Ander frame. All bony prominences well-padded eyes inspected to ensure no external pressure placed upon the peer at this point the lumbar spine was prepped and draped in normal sterile fashion. Sharp dissection with the assistance of Bovie cautery was performed down to and exposing the lamina and transverse processes of L3 and L4 bilaterally. From a caudal cephalad fashion complete laminectomy of L3 partial laminectomy of L2 was performed including bilateral medial facetectomies and foraminotomies. This included a complete facetectomy on the right to expose a severely compressed exiting L3 nerve root. Is markedly adhered to the far lateral disc herniation. Was able to separate the disc from the root creating significant decompression. Pedicle screws were then placed in L3 and L4 bilaterally with assistance of fluoroscopy and appropriate size snow placed. By way of a transforaminal approach on the right discectomy was performed in plate coated to subcortical bleeding bone and a 12 x 22 mm peek cage filled with ostium bone graft tapped in position. Rods and then compressed locked in final position bilaterally. The transverse processes of L3 and L4 burred to subcortical bleeding bone. Infuse collagen sponge mass graft local autograft placed in the posterior lateral gutters. 15 round MARINA drain inserted. Incision was then closed with 1 Vicryl fascia 2-0 Vicryl subcutaneous and 4 Monocryl for final skin closure. Please note Jael Kessler was present for patient positioning and complex portions of the surgery. Spinal cord monitoring was utilized throughout the procedure and no changes noted. I attest to the content of the Intraoperative Record and any orders documented therein. Any exceptions are noted below.
[2018-10-26] MEDS ORDERED: KETOROLAC 30 MG/ML VIAL ONE (14:26)
[2018-10-26] MEDS ORDERED: LARYING-O-JET KIT (LTA) ONE (14:27)
[2018-10-26] MEDS ORDERED: ESMOLOL HCL INJ 10 MG/ML 10ML VIAL IV ONE (14:36)
[2018-10-26] MEDS: fentaNYL citrate 100 MCG/2 ML VIAL IV PRN ×4 (14:40→15:10)
[2018-10-26] MEDS: HYDROmorphone INJ 1 MG/ML SYRINGE IV PRN ×8 (15:18→20:27)
--- NOTE | 2018-10-26 16:17 | Anesthesiology Progress Note ---
Date of Service October 26, 2018 Anesthesia Post Procedure Vital Signs Vital Signs: Temp Pulse Pulse Resp BP Pulse Ox 10/26/18 16:09 68 18 136/59 L 96 10/26/18 16:00 36.8 C 65 17 140/69 96 10/26/18 15:50 36.8 C 61 16 135/77 94 10/26/18 15:40 36.8 C 54 L 16 127/67 96 10/26/18 15:30 36.8 C 79 20 132/69 95 10/26/18 15:20 67 16 153/83 H 95 10/26/18 15:10 65 16 144/77 H 94 10/26/18 15:00 90 21 149/80 H 100 10/26/18 14:50 81 18 132/86 100 10/26/18 14:40 86 21 145/89 H 99 10/26/18 14:30 36.2 C L 85 14 131/76 98 10/26/18 11:51 53 L 16 91 10/26/18 10:51 37.0 C 61 20 136/66 94 10/26/18 07:28 36.6 C 69 20 138/83 94 10/26/18 07:26 60 10/26/18 04:00 36.4 C L 66 18 130/69 92 10/26/18 00:00 58 L 10/25/18 23:18 36.6 C 56 L 20 116/75 94 10/25/18 19:48 37.0 C 72 18 122/76 94 10/25/18 16:45 36.7 C 62 18 125/78 94 Pain Intensity Abdomen: Pain Intensity: 5 Transfer of Care Handoff Completed per policy Notes Mental Status: alert / awake / arousable and participated in evaluation Patient Amnestic to Procedure: Yes Nausea / Vomiting: adequately controlled Pain: adequately controlled Airway Patency, RR, SpO2: stable & adequate BP & HR: stable & adequate Hydration State: stable & adequate Anesthetic Complications: no major complications apparent and Pt Satisfied with anesthetic care
[2018-10-26] MEDS ORDERED: DO NOT ADMINISTER PNEUMOCOCCAL VACCINE PRN (16:43)
[2018-10-26] MEDS ORDERED: ACETAMINOPHEN 500 MG TAB PO PRN (16:43)
[2018-10-26] MEDS ORDERED: METOCLOPRAMIDE HCL INJ 5 MG/ML 2 ML VIAL IV PRN (16:43)
[2018-10-26] MEDS ORDERED: SOD PHOSPHATE/SOD BIPHOSPHATE ENEMA 132 ML BTL PR PRN (16:43)
[2018-10-26] MEDS ORDERED: BISACODYL 10 MG SUPP PR PRN (16:43)
[2018-10-26] MEDS ORDERED: PROMETHAZINE HCL 12.5 MG in SODIUM CHLORIDE 0.9% 50 ML IV PRN (16:43)
[2018-10-26] MEDS ORDERED: LORazepam 0.5 MG TAB PO PRN (16:43)
[2018-10-26] MEDS ORDERED: ALUMINUM/MAGNESIUM SUSP 30 ML UDC PO PRN (16:43)
[2018-10-26] MEDS ORDERED: FAMOTIDINE 20 MG TAB PO PRN (16:43)
[2018-10-26] MEDS ORDERED: MAGNESIUM HYDROXIDE SUSP 30 ML UDC PO PRN (16:43)
[2018-10-26] MEDS ORDERED: LORazepam 0.5 MG/1 ML VIAL IV PRN (16:43)
[2018-10-26] MEDS ORDERED: HYDROmorphone INJ 0.5 MG/0.5 ML SYR IV PRN (16:43)
[2018-10-26] MEDS ORDERED: ACETAMINOPHEN 1,000 MG/100 ML VIAL IV PRN (16:43)
[2018-10-26] MEDS ORDERED: DO NOT ADMINISTER FLU VACCINE PRN (16:43)
--- NOTE | 2018-10-26 16:53 | Hospitalist Progress Note ---
Date of Service October 26, 2018 Assessment & Plan (1) Right sided abdominal pain: Acute Diverticulitis -Fever on admission and was evaluated for concern for possible sepsis on admission -CT abdomen with "Pandiverticulosis. Infiltration of the pericolonic fat at the level of the ascending colon likely secondary to acute diverticulitis." -has been on Zosyn IV and admission blood cultures have returned with no growth to date -Gastroenterology was consulted, Bentyl added on this admission, patient recommended to get colonoscopy after resolution diverticulitis -C.difficile negative 10/25/18, monitor for diarrhea -will transition from Zosyn to ciprofloxacin and flagyl starting on 10/26/18 Hospital course complicated by Right Lower Back Pain history of back surgery in the past with spinal stimulator placement Patient found to have 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 patient initially received IV solumedrol s/p lumbar decompression and fusion on 10/26/18 (#1 lumbar decompression bilateral medial facetectomies foraminotomies L2-3 L3- 4. #2 posterior spinal fusion L3-4. #3 placement posterior instrumentation L3- 4. #4 interbody fusion L3-4. #5 placement of peek cage 12 x 22 mm L3-4. #6 placement of local autograft in the posterior lateral gutters per #7 placement infuse collagen sponge bone mass graft in the posterior lateral gutters and ostial amp and interbody space.) Morbid obesity with BMI 43 -PT/OT evaluatiions after the surgery Transaminitis Hepatic steatosis -liver ultrasound: (+) hepatic steatosis COPD History -nasal cannula nebs every 6 hours Incentive spirometry Continue usual Brio wean off o2 accordingly Hypothyroidism -continue home dose levothyroxine Hypertension -hold HCTZ and lisinopril for now -continue metoprolol as low dose Mood disorder -continue home medications for anxiety and depression DVT prophylaxis SCDs Full code Subjective patient seen and examined after back surgery. Patient denies chest pain. on nasal cannula oxygen. she does not feel acutely short of breath. no abdomen pain. has MARINA drain to the back and needed assistance to roll over. no parra. she was able to void as per patient and nurse. Physical Exam Constitutional: WD/WN, vitals as above Eyes: PERRL, conjunctivae normal, anicteric sclerae EOM intact bilaterally ENMT: external ear and nose normal, oropharynx normal Neck: trachea midline, no thyromegaly normal visual inspection Respiratory: normal respiratory effort, lungs clear to auscultation Cardiovascular: Rate/Rhythm: regular rate and regular rhythm Gastrointestinal (Abdomen): normal bowel sounds, soft, nontender, no hepatosplenomegaly Musculoskeletal: Head/Neck/Chest: normocephalic and head atraumatic MARINA drain to the back Neurologic: PERRL, EOMI, accommodation nl, no face palsy, no dysarthria moves all extremities Psychiatric: A+Ox3, euthymic affect Results & Data Vital Signs (Past 12 Hours) Vital Signs Temp Pulse Pulse Resp BP Pulse Ox 10/26/18 16:09 68 18 136/59 L 96 10/26/18 16:00 36.8 C 65 17 140/69 96 10/26/18 15:50 36.8 C 61 16 135/77 94 10/26/18 15:40 36.8 C 54 L 16 127/67 96 10/26/18 15:30 36.8 C 79 20 132/69 95 10/26/18 15:20 67 16 153/83 H 95 10/26/18 15:10 65 16 144/77 H 94 10/26/18 15:00 90 21 149/80 H 100 10/26/18 14:50 81 18 132/86 100 10/26/18 14:40 86 21 145/89 H 99 10/26/18 14:30 36.2 C L 85 14 131/76 98 10/26/18 11:51 53 L 16 91 10/26/18 10:51 37.0 C 61 20 136/66 94 10/26/18 07:28 36.6 C 69 20 138/83 94 10/26/18 07:26 60
[2018-10-26] MEDS: metroNIDAZOLE 500 MG TAB PO SCH ×2 (18:43→22:32)
[2018-10-26] MEDS: clonazePAM 0.5 MG TAB PO SCH (20:26)
[2018-10-26] MEDS: PANTOprazole 40 MG TAB PO SCH (20:27)
[2018-10-26] MEDS: SERTRALINE HCL 100 MG TABLET PO SCH (20:28)
[2018-10-26] MEDS: CIPROFLOXACIN 500 MG TAB PO SCH (20:28)
[2018-10-26] MEDS: SIMVASTATIN 20 MG TAB PO SCH (20:28)
[2018-10-26] MEDS: SODIUM CHLORIDE 0.9% 1000ML 1,000 ML IV SCH (20:43)
[2018-10-27 05:41] LABS: Basophils # (auto) 0.01 K/uL (0-0.2); Basophils % (auto) 0.1 %; Eosinophils # (auto) 0.02 K/uL (0-0.5); Eosinophils % (auto) 0.2 %; Hematocrit (blood only) 32.4 % (37-47); Hemoglobin 11.2 g/dL (12.0-16.0); Immature Granulocytes # (auto) 0.17 K/uL (0.00-0.02); Lymphocytes # (auto) 1.53 K/uL (1.2-3.4); Lymphocytes % (auto) 17.6 %; Mean Corpuscular Hgb Conc 34.6 g/dL (32-36); Mean Corpuscular Volume 93.9 fL (80-100); Mean Platelet Volume 10.7 fL (7.4-10.4); Monocytes # (auto) 0.81 K/uL (0.11-0.59); Monocytes % (auto) 9.3 %; Neutrophils # (auto) 6.16 K/uL (1.4-6.5); Neutrophils % (auto) 70.8 %; Platelet Count 121 K/uL (130-400); RDW Coefficient of Variation 14.1 % (11.5-14.5); RDW Standard Deviation 48.3 fL (36.4-46.3); Red Blood Count 3.45 M/uL (4.2-5.4)
[2018-10-27] MEDS: TRAMADOL HCL 50 MG TABLET PO PRN ×4 (05:53→21:06)
[2018-10-27] MEDS: metroNIDAZOLE 500 MG TAB PO SCH ×3 (05:55→21:08)
[2018-10-27] MEDS: LEVOTHYROXINE SODIUM 125 MCG TABLET PO SCH (05:55)
[2018-10-27 06:08] LABS: BUN Creatinine Ratio 20.1 (10-20); Calcium 8.8 mg/dl (8.5-10.1); Creatinine Clr Calc Pharmacy 104.4 ml/min; Est GFR (African American) 108.5; Est GFR (Non-African American) 93.6; Potassium 3.8 mmol/L (3.5-5.1)
[2018-10-27] MEDS: SODIUM CHLORIDE 0.9% 1000ML 1,000 ML IV SCH (07:07)
[2018-10-27] MEDS: DULOXETINE HCL 20 MG CAP PO SCH (08:10)
[2018-10-27] MEDS: METOPROLOL SUCC 25MG EXT REL TAB PO SCH (08:11)
[2018-10-27] MEDS: CIPROFLOXACIN 500 MG TAB PO SCH ×2 (08:11→21:08)
[2018-10-27] MEDS: SENNA 8.6 MG TAB PO SCH (08:11)
[2018-10-27] MEDS: BusPIRone 15 MG TAB PO SCH ×2 (08:12→21:07)
[2018-10-27] MEDS: DICYCLOMINE HCL 10 MG CAP PO SCH ×3 (08:12→21:07)
[2018-10-27] MEDS: LIDOCAINE 5% 1 PATCH TD SCH (08:12)
[2018-10-27] MEDS: CHECK FENTANYL PATCH PLACEMENT SCH ×2 (08:12→16:56)
[2018-10-27] MEDS: HYDROmorphone INJ 1 MG/ML SYRINGE IV PRN (08:15)
--- NOTE | 2018-10-27 08:49 | Orthopedic Progress Note ---
Date of Service October 27, 2018 Assessment & Plan (1) Lumbar disc herniation with radiculopathy: This time will initiate physical therapy. She is demonstrated dramatic improvement of her radiculopathy and hopefully she will regain strength with time and therapy. Present on Admission?: Yes Subjective Back pain controlled right leg symptoms markedly improved. Physical Exam Physical Exam: On exam patient is in the chair at the bedside. She is improved with right quadriceps strength. She appears comfortable. Results & Data Vital Signs (Past 12 Hours) Vital Signs Temp Pulse Pulse Resp BP Pulse Ox 10/27/18 07:53 36.9 C 72 16 125/71 93 10/27/18 04:00 36.4 C L 79 18 141/73 H 94 10/26/18 23:10 36.6 C 81 18 118/70 93
--- NOTE | 2018-10-27 10:59 | Gastroenterology Progress Note ---
Date of Service October 27, 2018 Assessment & Plan (1) Elevated LFTs: (2) Nausea vomiting and diarrhea: (3) Acute diverticulitis: Pt is a 67 y/o female presented w R flank pain radiating to R abd side. On exam is diffusely tender on abd area. She does have pandiverticulosis, but acute ascending colon diverticulitis w/o complication. + R kidney calcification, urine culture negative. Of note, LFTs up also on workup, CT w evidence of hepatic steatosis, she is s/p cholecystectomy. LFTs eventually trending down. She underwent lumbar decompression and fusion on 10/[address] Soto. [place] much better, no longer having much back, abd pain or R leg cramps. She is tolerating liquid diet w/o n/v, passing flatus, BM yesterday. 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 - GI to sign off; pls recall as needed Supervising Physician Co-Signing Physician Notes Attending attestation I have seen, examined this patient, and agree with the findings and above by our mid-level provider SAI Kirkland. Absolutely no abdominal pain since her spinal cord compression, she feels quite well, she is eating with out diarrhea and rectal bleeding nausea and/or vomiting. She states that she is so happy and feels much improved. Would continue oral antibiotics for a course of 10 days. Will need Colonoscopy in 4-6 wks with her primary Epic Manager in [place], she understands the plan. Will sign off Subjective Pt POD #1 s/p lumbar decompression and fusion. She felt a marked improvement on R leg cramps, back and abd pain. Denies any N/V. Passing flatus, BM yesterday. Review of Systems Review of Systems: All systems reviewed & are unremarkable except as noted in HPI & below Physical Exam Constitutional: WD/WN, vitals as above + obese, well groomed and cooperative Eyes: PERRL, conjunctivae normal, anicteric sclerae ENMT: external ear and nose normal, oropharynx normal Respiratory: normal respiratory effort, lungs clear to auscultation Cardiovascular: RRR, no murmur, no edema Gastrointestinal (Abdomen): Inspection/Auscultation: + hypoactive bowel sounds Percussion/Palpation: abdomen soft; abdomen nontender Skin: no rashes, warm and dry no jaundice lumbar area w surgical dressing in place CDI Neurologic: Motor/Sensory: no asterixis Psychiatric: A+Ox3, euthymic affect Lymphatic: no lymphedema Results & Data Vital Signs (Past 12 Hours) Vital Signs Temp Pulse Pulse Resp BP Pulse Ox 10/27/18 07:53 36.9 C 72 16 125/71 93 10/27/18 04:00 36.4 C L 79 18 141/73 H 94 10/26/18 23:10 36.6 C 81 18 118/70 93
[2018-10-27] MEDS: fentaNYL 25 MCG/HR TDSY TD SCH (14:40)
--- NOTE | 2018-10-27 16:42 | Hospitalist Progress Note ---
Date of Service October 27, 2018 Assessment & Plan (1) Right sided abdominal pain: Acute Diverticulitis Diarrhea -Fever on admission and was evaluated for concern for possible sepsis on admission -CT abdomen with "Pandiverticulosis. Infiltration of the pericolonic fat at the level of the ascending colon likely secondary to acute diverticulitis." -has been on Zosyn IV and admission blood cultures have returned with no growth to date -Gastroenterology was consulted, Bentyl added on this admission, patient recommended to get colonoscopy after resolution diverticulitis -C.difficile negative 10/25/18 -was transitioned from Zosyn to ciprofloxacin and flagyl starting on 10/26/18, continue ciprofloxacin and flagyl; diarrhea appears resolved at this time Hospital course complicated by Right Lower Back Pain history of back surgery in the past with spinal stimulator placement Patient found to have 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 patient initially received IV solumedrol s/p lumbar decompression and fusion on 10/26/18 (#1 lumbar decompression bilateral medial facetectomies foraminotomies L2-3 L3- 4. #2 posterior spinal fusion L3-4. #3 placement posterior instrumentation L3- 4. #4 interbody fusion L3-4. #5 placement of peek cage 12 x 22 mm L3-4. #6 placement of local autograft in the posterior lateral gutters per #7 placement infuse collagen sponge bone mass graft in the posterior lateral gutters and ostial amp and interbody space.) -management of the MARINA drain as per orthopedics team -pain control medications and bowel regimen -PT/OT evaluations Morbid obesity with BMI 43 -PT/OT evaluations Transaminitis Hepatic steatosis -liver ultrasound: (+) hepatic steatosis COPD History -Incentive spirometry, Continue usual Brio, on room air Hypothyroidism -continue home dose levothyroxine Hypertension -hold HCTZ and lisinopril for now -continue metoprolol as low dose Mood disorder -continue home medications for anxiety and depression DVT prophylaxis SCDs Full code Subjective MARINA drain to the back draining serosanguinous fluid. Patient generally comfortable. some back discomfort. no vomiting. no abdomen pain. no chest pain. no shortness of breath. is breathing on room air Physical Exam Constitutional: WD/WN, vitals as above Eyes: PERRL, conjunctivae normal, anicteric sclerae EOM intact bilaterally ENMT: external ear and nose normal, oropharynx normal Neck: trachea midline, no thyromegaly normal visual inspection Respiratory: normal respiratory effort, lungs clear to auscultation Cardiovascular: Rate/Rhythm: regular rate and regular rhythm Gastrointestinal (Abdomen): normal bowel sounds, soft, nontender, no hepatosplenomegaly Musculoskeletal: Head/Neck/Chest: normocephalic and head atraumatic MARINA drain to the back draining serosanguinous fluid Neurologic: PERRL, EOMI, accommodation nl, no face palsy, no dysarthria Psychiatric: A+Ox3, euthymic affect Results & Data Vital Signs (Past 12 Hours) Vital Signs Temp Pulse Resp BP Pulse Ox 10/27/18 14:59 37.1 C 90 16 111/72 93 10/27/18 14:29 96 10/27/18 07:53 36.9 C 72 16 125/71 93
[2018-10-27] MEDS: clonazePAM 0.5 MG TAB PO SCH (21:05)
[2018-10-27] MEDS: PANTOprazole 40 MG TAB PO SCH (21:06)
[2018-10-27] MEDS: SERTRALINE HCL 100 MG TABLET PO SCH (21:06)
[2018-10-27] MEDS: SIMVASTATIN 20 MG TAB PO SCH (21:06)
[2018-10-27] MEDS: ONDANSETRON INJ 2 MG/ML 2 ML VIAL IV PRN (22:11)
[2018-10-28] MEDS: HYDROmorphone INJ 1 MG/ML SYRINGE IV PRN ×2 (00:03→05:37)
[2018-10-28] MEDS: CHECK FENTANYL PATCH PLACEMENT SCH ×4 (00:28→23:25)
[2018-10-28] MEDS: ONDANSETRON INJ 2 MG/ML 2 ML VIAL IV PRN (05:37)
[2018-10-28] MEDS: LEVOTHYROXINE SODIUM 125 MCG TABLET PO SCH (06:16)
[2018-10-28] MEDS: metroNIDAZOLE 500 MG TAB PO SCH ×3 (06:16→22:54)
[2018-10-28] MEDS: METOPROLOL SUCC 25MG EXT REL TAB PO SCH (08:12)
[2018-10-28] MEDS: DULOXETINE HCL 20 MG CAP PO SCH (08:13)
[2018-10-28] MEDS: CIPROFLOXACIN 500 MG TAB PO SCH ×2 (08:13→20:27)
[2018-10-28] MEDS: SENNA 8.6 MG TAB PO SCH (08:13)
[2018-10-28] MEDS: DICYCLOMINE HCL 10 MG CAP PO SCH ×3 (08:13→20:26)
[2018-10-28] MEDS: BusPIRone 15 MG TAB PO SCH ×2 (08:13→20:26)
[2018-10-28] MEDS: LIDOCAINE 5% 1 PATCH TD SCH (08:14)
[2018-10-28] MEDS: TRAMADOL HCL 50 MG TABLET PO PRN ×3 (08:16→23:27)
--- NOTE | 2018-10-28 08:51 | Orthopedic Progress Note ---
Date of Service October 28, 2018 Assessment & Plan (1) Lumbar disc herniation with radiculopathy: This time she is we will continue physical therapy. From an orthopedic standpoint she would be able to discharge home this weekend. I would need to have her follow-up for x-rays and exam in approximately 2 weeks in our office. Present on Admission?: Yes Subjective Patient's back pain is controlled leg symptoms markedly improved. Physical Exam Physical Exam: On exam she is in the chair at the bedside. Her strength is improving to test in the right quadriceps. Results & Data Vital Signs (Past 12 Hours) Vital Signs Temp Pulse Pulse Resp BP BP Pulse Ox 10/28/18 08:00 36.9 C 98 H 16 142/82 H 86 L 10/28/18 06:39 37.7 C H 82 16 137/83 91 10/27/18 23:15 37.4 C 85 16 115/68 91
[2018-10-28] MEDS: HYDROCODONE/ACETAMINOPHEN 10/325 TAB PO PRN ×2 (10:47→20:24)
--- NOTE | 2018-10-28 11:55 | Hospitalist Progress Note ---
Date of Service October 28, 2018 Assessment & Plan (1) Right sided abdominal pain: Acute Diverticulitis Diarrhea -Fever on admission and was evaluated for concern for possible sepsis on admission on 10/23/18 -CT abdomen with "Pandiverticulosis. Infiltration of the pericolonic fat at the level of the ascending colon likely secondary to acute diverticulitis." -has been on Zosyn IV and admission blood cultures have returned with no growth to date -Gastroenterology was consulted, Bentyl added on this admission, patient recommended to get colonoscopy after resolution diverticulitis -C.difficile negative 10/25/18 -was transitioned from Zosyn to ciprofloxacin and flagyl starting on 10/26/18, continue ciprofloxacin and flagyl; diarrhea appears resolved at this time Hospital course complicated by Right Lower Back Pain history of back surgery in the past with spinal stimulator placement Patient found to have 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 patient initially received IV solumedrol s/p lumbar decompression and fusion on 10/26/18 (#1 lumbar decompression bilateral medial facetectomies foraminotomies L2-3 L3- 4. #2 posterior spinal fusion L3-4. #3 placement posterior instrumentation L3- 4. #4 interbody fusion L3-4. #5 placement of peek cage 12 x 22 mm L3-4. #6 placement of local autograft in the posterior lateral gutters per #7 placement infuse collagen sponge bone mass graft in the posterior lateral gutters and ostial amp and interbody space.) -management of the MARINA drain as per orthopedics team -pain control medications, increase bowel regimen to encourage bowel motility -PT/OT evaluations Morbid obesity with BMI 43 -PT/OT evaluations Transaminitis Hepatic steatosis -liver ultrasound: (+) hepatic steatosis COPD History -Incentive spirometry, Continue usual Breo, on room air Hypothyroidism -continue home dose levothyroxine Hypertension -resume home dose HCTZ and lisinopril -continue metoprolol as low dose Mood disorder -continue home medications for anxiety and depression DVT prophylaxis SCDs Full code Subjective Patient reports tolerable back discomfort. no acute leg pains. patent passing gas. no bowel movement. denies problems with urination. no chest pain. on room air. no shortness of breath. no acute abdomen pain. no lightheadedness. no dizziness. continues to have MARINA drain to the back Physical Exam Constitutional: WD/WN, vitals as above Eyes: PERRL, conjunctivae normal, anicteric sclerae EOM intact bilaterally ENMT: external ear and nose normal, oropharynx normal Neck: trachea midline, no thyromegaly normal visual inspection Respiratory: normal respiratory effort, lungs clear to auscultation Cardiovascular: Rate/Rhythm: regular rate and regular rhythm Gastrointestinal (Abdomen): normal bowel sounds, soft, nontender, no hepatosplenomegaly Musculoskeletal: Head/Neck/Chest: normocephalic and head atraumatic MARINA drain to the back Neurologic: PERRL, EOMI, accommodation nl, no face palsy, no dysarthria Psychiatric: A+Ox3, euthymic affect Results & Data Vital Signs (Past 12 Hours) Vital Signs Temp Pulse Pulse Resp BP BP Pulse Ox 10/28/18 11:42 91 10/28/18 08:00 36.9 C 98 H 16 142/82 H 86 L 10/28/18 06:39 37.7 C H 82 16 137/83 91
[2018-10-28] MEDS ORDERED: POLYETHYLENE (MIRALAX) 17 GM PACK PO PRN (11:59)
[2018-10-28] MEDS ORDERED: MAGNESIUM HYDROXIDE SUSP 30 ML UDC PO ONE (11:59)
[2018-10-28] MEDS: LISINOPRIL/HCTZ 10/12.5MG TAB PO SCH (13:03)
[2018-10-28] MEDS: PANTOprazole 40 MG TAB PO SCH (20:27)
[2018-10-28] MEDS: SIMVASTATIN 20 MG TAB PO SCH (20:27)
[2018-10-28] MEDS: SERTRALINE HCL 100 MG TABLET PO SCH (20:27)
[2018-10-28] MEDS: clonazePAM 0.5 MG TAB PO SCH (22:53)
[2018-10-29] MEDS: HYDROCODONE/ACETAMINOPHEN 10/325 TAB PO PRN ×2 (04:05→17:58)
[2018-10-29] MEDS: metroNIDAZOLE 500 MG TAB PO SCH ×3 (05:29→22:07)
[2018-10-29] MEDS: LEVOTHYROXINE SODIUM 125 MCG TABLET PO SCH (05:29)
[2018-10-29] MEDS: TRAMADOL HCL 50 MG TABLET PO PRN ×3 (05:29→23:32)
[2018-10-29 07:00] LABS: Hematocrit (blood only) 33.3 % (37-47); Hemoglobin 11.6 g/dL (12.0-16.0); Mean Corpuscular Hgb Conc 34.8 g/dL (32-36); Mean Corpuscular Volume 92.5 fL (80-100); Mean Platelet Volume 10.6 fL (7.4-10.4); Nucleated RBC # (auto) 0.04 K/uL (0-0); Nucleated RBC % (auto) 0.5 %; Platelet Count 145 K/uL (130-400); RDW Coefficient of Variation 13.8 % (11.5-14.5); RDW Standard Deviation 46.1 fL (36.4-46.3); White Blood Count 9.91 K/uL (4.8-10.8)
[2018-10-29 07:31] LABS: Basophils # (auto) 0.03 K/uL (0-0.2); Basophils % (auto) 0.3 %; Eosinophils # (auto) 0.32 K/uL (0-0.5); Eosinophils % (auto) 3.2 %; Immature Granulocytes # (auto) 0.66 K/uL (0.00-0.02); Immature Granulocytes % (auto) 6.7 %; Lymphocytes # (auto) 2.01 K/uL (1.2-3.4); Lymphocytes % (auto) 20.3 %; Monocytes # (auto) 0.67 K/uL (0.11-0.59); Monocytes % (auto) 6.8 %; Neutrophils # (auto) 6.22 K/uL (1.4-6.5); Neutrophils % (auto) 62.7 %
[2018-10-29 07:40] LABS: BUN Creatinine Ratio 10.5 (10-20); Calcium 8.5 mg/dl (8.5-10.1); Creatinine Clr Calc Pharmacy 99.7 ml/min; Est GFR (African American) 106.9; Est GFR (Non-African American) 92.2; Potassium 3.1 mmol/L (3.5-5.1)
--- NOTE | 2018-10-29 08:19 | Orthopedic Progress Note ---
Date of Service October 29, 2018 Assessment & Plan (1) Lumbar disc herniation with radiculopathy: This time she is we will continue physical therapy. From an orthopedic standpoint she would be able to discharge home this weekend. I would need to have her follow-up for x-rays and exam in approximately 2 weeks in our office. I have added Decadron this morning in hopes of relieving some of her right lower extremity radiculopathy. Continue with aggressive bowel regimen. Supervising Physician Co-Signing Physician Notes Dr. Kirby Soto Subjective Patient's back pain is controlled leg symptoms markedly improved. Overnight she has had some right lower extremity pain along the anterior thigh. Yesterday physical therapy she was Rosemary about 170 feet plus steps. MARINA drain outputs 5 cc. H&H is morning are 11.6 and 33.3 respectively. She is passing flatus but no bowel movement yet. She is anxious to return home upon discharge. Review of Systems Review of Systems: All systems reviewed & are unremarkable except as noted in HPI & below Physical Exam Physical Exam: Lumbar dressing is clean dry and intact. MARINA drain is intact. She has positive tension sign on the right. Negative on the left. Calf soft nontender bilaterally. Results & Data Vital Signs (Past 12 Hours) Vital Signs Temp Pulse Pulse Resp BP Pulse Ox 10/29/18 07:40 37.0 C 80 20 107/56 L 96 10/29/18 06:05 36.9 C 81 16 128/77 96 10/28/18 22:56 37.1 C 85 15 95/58 L 93
[2018-10-29] MEDS: CIPROFLOXACIN 500 MG TAB PO SCH ×2 (09:10→22:08)
[2018-10-29] MEDS: DULOXETINE HCL 20 MG CAP PO SCH (09:10)
[2018-10-29] MEDS: METOPROLOL SUCC 25MG EXT REL TAB PO SCH (09:12)
[2018-10-29] MEDS: LIDOCAINE 5% 1 PATCH TD SCH (09:13)
[2018-10-29] MEDS: SENNA 8.6 MG TAB PO SCH (09:13)
[2018-10-29] MEDS: BusPIRone 15 MG TAB PO SCH ×2 (09:13→22:08)
[2018-10-29] MEDS: LISINOPRIL/HCTZ 10/12.5MG TAB PO SCH (09:13)
[2018-10-29] MEDS: DICYCLOMINE HCL 10 MG CAP PO SCH ×3 (09:13→22:08)
[2018-10-29] MEDS: CHECK FENTANYL PATCH PLACEMENT SCH ×3 (09:14→23:29)
[2018-10-29] MEDS ORDERED: POTASSIUM CHLORIDE 20 MEQ TABCR PO STA (10:23)
--- NOTE | 2018-10-29 10:23 | Hospitalist Progress Note ---
Date of Service October 29, 2018 Assessment & Plan (1) Right sided abdominal pain: Acute Diverticulitis Diarrhea -Fever on admission and was evaluated for concern for possible sepsis on admission on 10/23/18 -CT abdomen with "Pandiverticulosis. Infiltration of the pericolonic fat at the level of the ascending colon likely secondary to acute diverticulitis." -has been on Zosyn IV and admission blood cultures have returned with no growth to date -Gastroenterology was consulted, Bentyl added on this admission, patient recommended to get colonoscopy after resolution diverticulitis -C.difficile negative 10/25/18 -was transitioned from Zosyn to ciprofloxacin and flagyl starting on 10/26/18, continue ciprofloxacin and flagyl; diarrhea appears resolved at this time Hospital course complicated by Right Lower Back Pain history of back surgery in the past with spinal stimulator placement Patient found to have 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 patient initially received IV solumedrol s/p lumbar decompression and fusion on 10/26/18 (#1 lumbar decompression bilateral medial facetectomies foraminotomies L2-3 L3- 4. #2 posterior spinal fusion L3-4. #3 placement posterior instrumentation L3- 4. #4 interbody fusion L3-4. #5 placement of peek cage 12 x 22 mm L3-4. #6 placement of local autograft in the posterior lateral gutters per #7 placement infuse collagen sponge bone mass graft in the posterior lateral gutters and ostial amp and interbody space.) -MARINA drain to be discontinued on 10/29/18 as per orthopedics team -orthopedic team started IV dexamethasone q8 hours for total of 3 doses starting on 10/29/18 to help with radiculopathy pain -pain control medications, bowel regimen -PT/OT evaluations Morbid obesity with BMI 43 -PT/OT evaluations Transaminitis Hepatic steatosis -liver ultrasound: (+) hepatic steatosis COPD History -Incentive spirometry, Continue usual Breo, on room air Hypothyroidism -continue home dose levothyroxine Hypokalemia -serum potassium 3.1 on 10/29/18, give oral and IV potassium Hypertension -reconsider HCTZ/lisinopril because of hypokalemia; will plan on continuing lisinopril only starting on 10/30/18 -continue metoprolol as low dose Mood disorder -continue home medications for anxiety and depression DVT prophylaxis SCDs Full code Subjective Patient seen sitting up in chair. continues to have MARINA drain this AM. patient no distress. reports bowel movement yesterday from additional bowel regimen. generally feels flatulent. denies chest pain or shortness of breath. breathing on room air. no lightheadedness or dizziness. she is doing activities as tolerated despite discomforts post surgery Physical Exam Constitutional: WD/WN, vitals as above Eyes: PERRL, conjunctivae normal, anicteric sclerae EOM intact bilaterally ENMT: external ear and nose normal, oropharynx normal Neck: trachea midline, no thyromegaly normal visual inspection Respiratory: normal respiratory effort, lungs clear to auscultation Cardiovascular: Rate/Rhythm: regular rate and regular rhythm Gastrointestinal (Abdomen): normal bowel sounds, soft, nontender, no hepatosplenomegaly Musculoskeletal: Head/Neck/Chest: normocephalic and head atraumatic presence of MARINA drain at time of exam Neurologic: PERRL, EOMI, accommodation nl, no face palsy, no dysarthria Psychiatric: A+Ox3, euthymic affect Results & Data Vital Signs (Past 12 Hours) Vital Signs Temp Pulse Pulse Resp BP Pulse Ox 10/29/18 07:40 37.0 C 80 20 107/56 L 96 10/29/18 06:05 36.9 C 81 16 128/77 96 10/28/18 22:56 37.1 C 85 15 95/58 L 93
[2018-10-29] MEDS: POTASSIUM CHLORIDE / WTR 10 MEQ/100 ML PLCT IV SCH ×2 (11:09→12:27)
[2018-10-29] MEDS: DEXAMETHASONE SOD PHOSPHATE 8 MG in SYRINGE 0 ML IV SCH ×2 (14:01→22:08)
[2018-10-29] MEDS: clonazePAM 0.5 MG TAB PO SCH (22:07)
[2018-10-29] MEDS: SIMVASTATIN 20 MG TAB PO SCH (22:07)
[2018-10-29] MEDS: PANTOprazole 40 MG TAB PO SCH (22:08)
[2018-10-29] MEDS: SERTRALINE HCL 100 MG TABLET PO SCH (22:08)
[2018-10-30] MEDS: DEXAMETHASONE SOD PHOSPHATE 8 MG in SYRINGE 0 ML IV SCH (05:35)
[2018-10-30] MEDS: metroNIDAZOLE 500 MG TAB PO SCH (05:35)
[2018-10-30] MEDS: LEVOTHYROXINE SODIUM 125 MCG TABLET PO SCH (06:34)
--- NOTE | 2018-10-30 06:46 | Orthopedic Progress Note ---
Date of Service October 30, 2018 Assessment & Plan (1) Lumbar disc herniation with radiculopathy: Right lower extremity pain is improved with Decadron over the past 24 hours. She is making progress with physical therapy. She is anxious to return home. From an orthopedic standpoint she is stable to be discharged when medicine team deems she is ready. She will follow-up in office in 2 weeks. [phone]. Supervising Physician Co-Signing Physician Notes Dr. Kirby Soto Subjective [place] is postoperative day for lumbar decompression fusion. She is doing well. Right lower extremity pain is greatly improved after Decadron was initiated yesterday. She was able to inflate roughly 170 feet with physical therapy. She is passing flatus reports no bowel movement. No events overnight. She is a bit frustrated that when she is ambulating her right lower extremity is buckling/giving out on her. Review of Systems Review of Systems: All systems reviewed & are unremarkable except as noted in HPI & below Physical Exam Physical Exam: She is resting in bed comfortably. Alert and oriented x3. No obvious distress. Lumbar dressing is clean dry and intact. Strength is improving bilateral lower extremeties. Calf is soft nontender. Neurovascular intact bilateral lower extremities. Constitutional: WD/WN, vitals as above Eyes: normal visual lozoya by confrontation ENMT: external ear and nose normal, oropharynx normal Neck: normal visual inspection Respiratory: normal respiratory effort Cardiovascular: Rate/Rhythm: regular rate Gastrointestinal (Abdomen): Inspection/Auscultation: abdomen normal to inspection Musculoskeletal: Extremities: extremities normal to inspection Skin: no rashes, warm and dry Neurologic: patellar DTR's 2+ bilat, sensation intact moves all extremities Psychiatric: A+Ox3, euthymic affect Results & Data Vital Signs (Past 12 Hours) Vital Signs Temp Pulse Resp BP Pulse Ox 10/29/18 23:23 94 10/29/18 23:22 36.7 C 78 15 140/83 83 L
[2018-10-30 08:09] LABS: BUN Creatinine Ratio 13.6 (10-20); Calcium 9.3 mg/dl (8.5-10.1); Creatinine Clr Calc Pharmacy 106.1 ml/min; Est GFR (African American) 109.1; Est GFR (Non-African American) 94.1
[2018-10-30] MEDS: DICYCLOMINE HCL 10 MG CAP PO SCH (08:53)
[2018-10-30] MEDS: SENNA 8.6 MG TAB PO SCH (08:53)
[2018-10-30] MEDS: DULOXETINE HCL 20 MG CAP PO SCH (08:53)
[2018-10-30] MEDS: LIDOCAINE 5% 1 PATCH TD SCH (08:53)
[2018-10-30] MEDS: CIPROFLOXACIN 500 MG TAB PO SCH (08:53)
[2018-10-30] MEDS: BusPIRone 15 MG TAB PO SCH (08:53)
[2018-10-30] MEDS: METOPROLOL SUCC 25MG EXT REL TAB PO SCH (08:55)
[2018-10-30] MEDS: CHECK FENTANYL PATCH PLACEMENT SCH (08:55)
[2018-10-30] MEDS ORDERED: LISINOPRIL 10 MG TAB PO SCH (09:00)
--- NOTE | 2018-10-30 09:40 | Hospitalist Progress Note ---
Date of Service October 30, 2018 Assessment & Plan (1) Right sided abdominal pain: Acute Diverticulitis Diarrhea -Fever on admission and was evaluated for concern for possible sepsis on admission on 10/23/18 -CT abdomen with "Pandiverticulosis. Infiltration of the pericolonic fat at the level of the ascending colon likely secondary to acute diverticulitis." -has been on Zosyn IV and admission blood cultures have returned with no growth to date -Gastroenterology was consulted, Bentyl added on this admission, patient recommended to get colonoscopy after resolution diverticulitis -C.difficile negative 10/25/18 -was transitioned from Zosyn to ciprofloxacin and flagyl starting on 10/26/18, continue ciprofloxacin and flagyl; diarrhea appears resolved at this time -Patient should take ciprofloxacin 500 mg BID (means twice daily) for 3 more days and metronidazole 500 mg every 8 hours to complete the total 10 day course of antibiotics which was started in the hospital for diverticulitis -Patient should see primary care doctor and consider colonoscopy in the future Hospital course complicated by Right Lower Back Pain -history of back surgery in the past with spinal stimulator placement -Patient found to have 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 -patient initially received IV solumedrol -s/p lumbar decompression and fusion on 10/26/18 (#1 lumbar decompression bilateral medial facetectomies foraminotomies L2-3 L3- 4. #2 posterior spinal fusion L3-4. #3 placement posterior instrumentation L3- 4. #4 interbody fusion L3-4. #5 placement of peek cage 12 x 22 mm L3-4. #6 placement of local autograft in the posterior lateral gutters per #7 placement infuse collagen sponge bone mass graft in the posterior lateral gutters and ostial amp and interbody space.) -MARINA drain to be discontinued on 10/29/18 as per orthopedics team -orthopedic team started IV dexamethasone q8 hours for total of 3 doses starting on 10/29/18 to help with radiculopathy pain -Patient should take senna daily to prevent constipation Patient may take acetaminophen 325 every 6 hours as needed for mild pain Patient has tramadol prescription 50 mg every 4 hours as needed for moderate to severe pain because of recent back surgery (24 tablets prescribed) . [place] PDMP was checked and patient does not have other active narcotic prescriptions prior to this hospital stay. Patient did not have any complications during this hospital stay with narcotic pain medications and benzodiazepines when needed Morbid obesity with BMI 43 -PT/OT evaluations completed inpatient -Patient should discuss weight loss strategies with primary care doctor Transaminitis Hepatic steatosis -liver ultrasound: (+) hepatic steatosis -liver function stable -continue treatment plan the same in regards to morbid obesity COPD History -Incentive spirometry, Continue usual Breo, on room air Hypothyroidism -continue home dose levothyroxine Hypokalemia -serum potassium 3.1 on 10/29/18, give oral and IV potassium -hypokalemia resolved as serum potassium is 4 on 10/30/18 Hypertension -blood pressure generally was controlled off HCTZ and lisinopril during the hospital stay and lisinopril was recently restarted -Patient should avoid hydrochlorothiazide until follow up with primary care doctor Patient may take 10 mg lisinopril daily for hypertension Patient should take metoprolol succinate 25 mg daily which is less than patient's home dose because heart rate and blood pressure controlled on 25 mg daily while in the hospital Mood disorder -continue home medications for anxiety and depression DVT prophylaxis SCDs Full code Discharge Diagnosis Right sided abdominal pain; diarrhea; Acute Diverticulitis; s/p lumbar spine for decompression of spinal cord, morbid obesity with BMI of 43 in an adult, Hype rtension, Hypothyroidism Discharge Instructions General Discharge Instructions Patient should take ciprofloxacin 500 mg BID (means twice daily) for 3 more days and metronidazole 500 mg every 8 hours to complete the total 10 day course of antibiotics which was started in the hospital for diverticulitis Patient should see primary care doctor and consider colonoscopy in the future Patient should avoid hydrochlorothiazide until follow up with primary care doctor Patient may take 10 mg lisinopril daily for hypertension Patient should take metoprolol succinate 25 mg daily which is less than patient's home dose because heart rate and blood pressure controlled on 25 mg daily while in the hospital Patient should take senna daily to prevent constipation Patient may take acetaminophen 325 every 6 hours as needed for mild pain Patient has tramadol prescription 50 mg every 4 hours as needed for moderate to severe pain because of recent back surgery (24 tablets prescribed) . [place] PDMP was checked and patient does not have other active narcotic prescriptions prior to this hospital stay. 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 patient initially received IV solumedrol s/p lumbar decompression and fusion on 10/26/18 (#1 lumbar decompression bilateral medial facetectomies foraminotomies L2-3 L3- 4. #2 posterior spinal fusion L3-4. #3 placement posterior instrumentation L3- 4. #4 interbody fusion L3-4. #5 placement of peek cage 12 x 22 mm L3-4. #6 placement of local autograft in the posterior lateral gutters per #7 placement infuse collagen sponge bone mass graft in the posterior lateral gutters and ostial amp and interbody space.) Orthopedic discharge Instructions: follow-up in office in 2 weeks. [phone] ACTIVITY RECOMMENDATIONS: SELF CARE INSTRUCTIONS AFTER THORACIC/LUMBAR FUSIONS 1. You may walk to your tolerance. It is good exercise for your legs and back. Expect some back and intermittent leg aches and pains. 2. You may perform "counter-top" level activities (make a sandwich, waldemar with a project, etc.). 3. No bending or lifting of more than 10 pounds or back twisting of any nature (roll like a log when turning in bed). 4. You may ride in a car for 20-30 minutes at a time. No driving until after your first visit with your doctor. 5. Frequent changes of position and restricting sitting to 30 minutes at a time will help limit the amount of back spasms and stiffness you may experience. 6. You may discontinue the use of ambulatory aids (cane, crutches, etc.) once your strength and confidence allow. 7. You may auto suspension and steering mechanic the shower and let water strike your incision when you arrive home at least once daily. Do not take a tub bath, sit in a hot tub or go into a swimming pool until after your first recheck in the office. SPECIAL CARE INSTRUCTIONS: VERY IMPORTANT TO READ AND REVIEW A. Your surgical incision has been closed with a cosmetic suture under the skin that will dissolve in about 6 weeks. In 14 days, you can use a pair of clean scissors and cut the suture that is left outside of the skin at the ends of your incision. 1. The small skin tapes can be removed 7 days after surgery if they have not fallen off by that point. 2. You may keep the wound open to air as much as possible to promote healing after post-op day number 5 unless told otherwise by your doctor. 3. If you think the wound looks like it is becoming infected (redness or worsening drainage) and/or you are experiencing fever, chill or worsening back pain and muscle spasms, contact the office so that we may evaluate you as soon as possible. B. Complications are uncommon, but please contact us if you have any signs or symptoms of: 1. wound infection (fever higher than 102.5 degrees F, redness, separation of wound, drainage, or increasing pain from the incision) 2. blood clots in legs (pain, swelling, redness and warmth in legs) 3. urinary tract infection (fever higher than 102.5 degrees F, burning upon urination or increased frequency of urination) 4. nerve problems (inability to walk on your toes or heels, numbness, loss of bowel or bladder control) 5. any other symptoms that concern you C. Please call the office at if you have any concerns or questions about your operation or recovery. D. No smoking! Smoking drastically decreases the chance of a solid fusion. E. Do not take any anti-inflammatory medications (Indocin, Advil, Motrin, Aspirin, Naprosyn, etc.) as these may inhibit the chance of a solid fusion. Tylenol is okay to take for pain. MANAGING PAIN AFTER SPINAL SURGERY 1. Narcotic medication is intended for short-term use and will be provided for surgical pain. Surgical pain usually lasts for a period of 4-6 weeks. Narcotic medication includes Percocet, Vicodin, Darvocet, Tylenol #3 or Lortab. 2. Longer-term pain is more appropriately treated with non-narcotic medication such as Tylenol ES. 3. Muscle spasm is not appropriately treated with narcotics. Muscle relaxers such as Soma, Flexeril or Skelaxin can be used along with Tylenol ES. 4. Remember that we all live with some "aches and pains". This is not unusual or uncommon after an injury or as we get older. a. Back pain is expected and may include muscle spasms for 4 to 6 weeks after surgery. The pain should gradually improve. If the pain worsens for no apparent reason, please contact the office. b. Intermittent leg pain may also be experienced and should not be concerned about unless it worsens for no apparent reason. If so, please contact the office. 5. We will provide appropriate medication within the normal guidelines of their prescribed use. We will also be very cautious and aware of potential abuse and extended duration of patients' medication needs. a. Pain medications are for your comfort and to assist with sleep and rest so that the tissue can heal. They are not provided in order to return to normal activity and should not be used through the day. To do so or worsening pain at night can result from ongoing tissue damage and development of tolerance to the prescribed medicine. 6. Please allow 2-3 days to process refills. Prescriptions will not be mailed but must be picked up at the office. FOLLOW UP VISIT: Keep your scheduled follow-up appointment. Any questions, please call the office at . Subjective Patient seen and examined at the bedside. denies acute pain to the legs or of the back. no abdomen pain. no vomiting. no fever. patient eager to be discharged. Discharge plans and followups were discussed thoroughly Physical Exam Constitutional: WD/WN, vitals as above Eyes: PERRL, conjunctivae normal, anicteric sclerae EOM intact bilaterally ENMT: external ear and nose normal, oropharynx normal Neck: trachea midline, no thyromegaly normal visual inspection Respiratory: normal respiratory effort, lungs clear to auscultation Cardiovascular: Rate/Rhythm: regular rate and regular rhythm Gastrointestinal (Abdomen): normal bowel sounds, soft, nontender, no hepatosplenomegaly Musculoskeletal: Head/Neck/Chest: normocephalic and head atraumatic Neurologic: PERRL, EOMI, accommodation nl, no face palsy, no dysarthria Psychiatric: A+Ox3, euthymic affect Results & Data Vital Signs (Past 12 Hours) Vital Signs Temp Pulse Resp BP Pulse Ox 10/30/18 07:27 36.7 C 71 20 147/86 H 92 10/29/18 23:23 94 10/29/18 23:22 36.7 C 78 15 140/83 83 L
--- NOTE | 2018-10-30 09:48 | Discharge Summary ---
Date of Service October 30, 2018 Admission HPI Per Admitting Provider 67-year-old female with history of COPD, chronic pain, presenting with right- sided flank pain x2 weeks. Patient reports she was in her usual state of health until about 2 weeks ago when she started to have right flank pain radiating to her right groin About 2 weeks ago. Patient consulted with her primary care provider and was found to have muscular pain, conservative measures recommended. Following that, the pain progressed, and during the last 2 days was associated with nausea, vomiting, diarrhea. Denies melena or hematochezia. Denies dysuria. Yesterday patient started to have chills as well. At the ER patient was found to be tachycardic, febrile 38.6. CT abdomen and pelvis revealed possible descending colon diverticulitis. UA suggestive of possible UTI. On exam, patient was not in distress but appears uncomfortable, still having significant right flank pain. Denies chest pain, shortness of breath, dizziness, palpitations. No other symptoms. Admission Exam Per Admitting Provider General- oriented x 3, not in distress, speaks in sentences with no effort or accessory muscle use Head- atraumatic Eyes- PERRL, EOMI, anicteric ENT- oropharynx clear Neck- supple, no JVD, no adenopathy, no thyromegaly; carotids +2/2, no bruits appreciated Lungs- clear to auscultation bilaterally, no rales/wheezes Heart- normal rate, regular rhythm; no murmur, no gallop, no rub appreciated Abdomen- normal bowel sounds, nondistended, soft, positive right lower quadrant tenderness, moderate, no masses or hepatosplenomegaly Extremities- no pretibial edema, no calf tenderness; peripheral pulses intact Neuro- alert, oriented x 3; CN 2-12 grossly intact; motor 5/5 bilaterally;sensation 100% on all extremities; no other gross focal neurologic deficits Skin- warm & dry Principal Diagnosis Right sided abdominal pain; diarrhea; Acute Diverticulitis; s/p lumbar spine for decompression of spinal cord, morbid obesity with BMI of 43 in an adult, Hypertension, Hypothyroidism Discharge Exam Constitutional WD/WN, vitals as above Eyes PERRL, conjunctivae normal, anicteric sclerae EOM intact bilaterally ENMT external ear and nose normal, oropharynx normal Neck trachea midline, no thyromegaly normal visual inspection Respiratory normal respiratory effort, lungs clear to auscultation Cardiovascular Rate/Rhythm: regular rate and regular rhythm Gastrointestinal (Abdomen) normal bowel sounds, soft, nontender, no hepatosplenomegaly Musculoskeletal Head/Neck/Chest: normocephalic and head atraumatic Neurologic PERRL, EOMI, accommodation nl, no face palsy, no dysarthria Psychiatric A+Ox3, euthymic affect Discharge Data Allergies Allergy/AdvReac Type Severity Reaction Status Date / Time etodolac Allergy Intermediate HIVES Verified 10/23/18 10:26 sumatriptan Allergy HIVES Verified 10/23/18 10:26 acetaminophen AdvReac Intermediate NAUSEA Verified 10/23/18 10:26 oxycodone AdvReac Intermediate NAUSEA Verified 10/23/18 10:26 Consultations 10/23/18 10:27 ED Decision to Admit Stat 10/24/18 13:23 Consult Gastroenterology Routine 10/25/18 07:32 Consult Orthopedic Surgery Routine 10/25/18 10:50 Consult Pain Management Routine 10/26/18 16:43 Consult Case Management - Discharge Planning Routine Procedures Performed Operation Date: 10/26/18 12:35 Actual Procedures p L3-L4 Lumbar Decompression and Fusion, with Instrumentation - Kirby Soto DO Ordered Studies 10/23/18 08:44 CT abd pelvis wo con Stat 10/23/18 11:22 US liver Stat 10/24/18 13:20 MR lumbar spine wo con Urgent 10/26/18 12:00 FL fluoroscopy <1hr Routine FL lumbar spine 2-3V Routine Hospital Course (1) Right sided abdominal pain: Acute Diverticulitis Diarrhea -Fever on admission and was evaluated for concern for possible sepsis on admission on 10/23/18 -CT abdomen with "Pandiverticulosis. Infiltration of the pericolonic fat at the level of the ascending colon likely secondary to acute diverticulitis." -has been on Zosyn IV and admission blood cultures have returned with no growth to date -Gastroenterology was consulted, Bentyl added on this admission, patient recommended to get colonoscopy after resolution diverticulitis -C.difficile negative 10/25/18 -was transitioned from Zosyn to ciprofloxacin and flagyl starting on 10/26/18, continue ciprofloxacin and flagyl; diarrhea appears resolved at this time -Patient should take ciprofloxacin 500 mg BID (means twice daily) for 3 more days and metronidazole 500 mg every 8 hours to complete the total 10 day course of antibiotics which was started in the hospital for diverticulitis -Patient should see primary care doctor and consider colonoscopy in the future Hospital course complicated by Right Lower Back Pain -history of back surgery in the past with spinal stimulator placement -Patient found to have 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 -patient initially received IV solumedrol -s/p lumbar decompression and fusion on 10/26/18 (#1 lumbar decompression bilateral medial facetectomies foraminotomies L2-3 L3- 4. #2 posterior spinal fusion L3-4. #3 placement posterior instrumentation L3- 4. #4 interbody fusion L3-4. #5 placement of peek cage 12 x 22 mm L3-4. #6 pl acement of local autograft in the posterior lateral gutters per #7 placement infuse collagen sponge bone mass graft in the posterior lateral gutters and ostial amp and interbody space.) -MARINA drain to be discontinued on 10/29/18 as per orthopedics team -orthopedic team started IV dexamethasone q8 hours for total of 3 doses starting on 10/29/18 to help with radiculopathy pain -Patient should take senna daily to prevent constipation Patient may take acetaminophen 325 every 6 hours as needed for mild pain Patient has tramadol prescription 50 mg every 4 hours as needed for moderate to severe pain because of recent back surgery (24 tablets prescribed) . [place] PDMP was checked and patient does not have other active narcotic prescriptions prior to this hospital stay. Patient did not have any complications during this hospital stay with narcotic pain medications and benzodiazepines when needed Morbid obesity with BMI 43 -PT/OT evaluations completed inpatient -Patient should discuss weight loss strategies with primary care doctor Transaminitis Hepatic steatosis -liver ultrasound: (+) hepatic steatosis -liver function stable -continue treatment plan the same in regards to morbid obesity COPD History -Incentive spirometry, Continue usual Breo, on room air Hypothyroidism -continue home dose levothyroxine Hypokalemia -serum potassium 3.1 on 10/29/18, give oral and IV potassium -hypokalemia resolved as serum potassium is 4 on 10/30/18 Hypertension -blood pressure generally was controlled off HCTZ and lisinopril during the hospital stay and lisinopril was recently restarted -Patient should avoid hydrochlorothiazide until follow up with primary care doctor Patient may take 10 mg lisinopril daily for hypertension Patient should take metoprolol succinate 25 mg daily which is less than patient's home dose because heart rate and blood pressure controlled on 25 mg daily while in the hospital Mood disorder -continue home medications for anxiety and depression DVT prophylaxis SCDs Full code Discharge Diagnosis Right sided abdominal pain; diarrhea; Acute Diverticulitis; s/p lumbar spine for decompression of spinal cord, morbid obesity with BMI of 43 in an adult, Hypertension, Hypothyroidism Discharge Instructions General Discharge Instructions Patient should take ciprofloxacin 500 mg BID (means twice daily) for 3 more days and metronidazole 500 mg every 8 hours to complete the total 10 day course of antibiotics which was started in the hospital for diverticulitis Patient should see primary care doctor and consider colonoscopy in the future Patient should avoid hydrochlorothiazide until follow up with primary care doctor Patient may take 10 mg lisinopril daily for hypertension Patient should take metoprolol succinate 25 mg daily which is less than patient's home dose because heart rate and blood pressure controlled on 25 mg daily while in the hospital Patient should take senna daily to prevent constipation Patient may take acetaminophen 325 every 6 hours as needed for mild pain Patient has tramadol prescription 50 mg every 4 hours as needed for moderate to severe pain because of recent back surgery (24 tablets prescribed) . [place] PDMP was checked and patient does not have other active narcotic prescriptions prior to this hospital stay. 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 patient initially received IV solumedrol s/p lumbar decompression and fusion on 10/26/18 (#1 lumbar decompression bilateral medial facetectomies foraminotomies L2-3 L3- 4. #2 posterior spinal fusion L3-4. #3 placement posterior instrumentation L3- 4. #4 interbody fusion L3-4. #5 placement of peek cage 12 x 22 mm L3-4. #6 placement of local autograft in the posterior lateral gutters per #7 placement infuse collagen sponge bone mass graft in the posterior lateral gutters and ostial amp and interbody space.) Orthopedic discharge Instructions: follow-up in office in 2 weeks. ACTIVITY RECOMMENDATIONS: SELF CARE INSTRUCTIONS AFTER THORACIC/LUMBAR FUSIONS 1. You may walk to your tolerance. It is good exercise for your legs and back. Expect some back and intermittent leg aches and pains. 2. You may perform "counter-top" level activities (make a sandwich, waldemar with a project, etc.). 3. No bending or lifting of more than 10 pounds or back twisting of any nature (roll like a log when turning in bed). 4. You may ride in a car for 20-30 minutes at a time. No driving until after your first visit with your doctor. 5. Frequent changes of position and restricting sitting to 30 minutes at a time will help limit the amount of back spasms and stiffness you may experience. 6. You may discontinue the use of ambulatory aids (cane, crutches, etc.) once your strength and confidence allow. 7. You may financial services representative the shower and let water strike your incision when you arrive home at least once daily. Do not take a tub bath, sit in a hot tub or go into a swimming pool until after your first recheck in the office. SPECIAL CARE INSTRUCTIONS: VERY IMPORTANT TO READ AND REVIEW A. Your surgical incision has been closed with a cosmetic suture under the skin that will dissolve in about 6 weeks. In 14 days, you can use a pair of clean scissors and cut the suture that is left outside of the skin at the ends of your incision. 1. The small skin tapes can be removed 7 days after surgery if they have not fallen off by that point. 2. You may keep the wound open to air as much as possible to promote healing after post-op day number 5 unless told otherwise by your doctor. 3. If you think the wound looks like it is becoming infected (redness or worsening drainage) and/or you are experiencing fever, chill or worsening back pain and muscle spasms, contact the office so that we may evaluate you as soon as possible. B. Complications are uncommon, but please contact us if you have any signs or symptoms of: 1. wound infection (fever higher than 102.5 degrees F, redness, separation of wound, drainage, or increasing pain from the incision) 2. blood clots in legs (pain, swelling, redness and warmth in legs) 3. urinary tract infection (fever higher than 102.5 degrees F, burning upon urination or increased frequency of urination) 4. nerve problems (inability to walk on your toes or heels, numbness, loss of bowel or bladder control) 5. any other symptoms that concern you C. Please call the office at if you have any concerns or questions about your operation or recovery. D. No smoking! Smoking drastically decreases the chance of a solid fusion. E. Do not take any anti-inflammatory medications (Indocin, Advil, Motrin, Aspirin, Naprosyn, etc.) as these may inhibit the chance of a solid fusion. Tylenol is okay to take for pain. MANAGING PAIN AFTER SPINAL SURGERY 1. Narcotic medication is intended for short-term use and will be provided for surgical pain. Surgical pain usually lasts for a period of 4-6 weeks. Narcotic medication includes Percocet, Vicodin, Darvocet, Tylenol #3 or Lortab. 2. Longer-term pain is more appropriately treated with non-narcotic medication such as Tylenol ES. 3. Muscle spasm is not appropriately treated with narcotics. Muscle relaxers such as Soma, Flexeril or Skelaxin can be used along with Tylenol ES. 4. Remember that we all live with some "aches and pains". This is not unusual or uncommon after an injury or as we get older. a. Back pain is expected and may include muscle spasms for 4 to 6 weeks after surgery. The pain should gradually improve. If the pain worsens for no apparent reason, please contact the office. b. Intermittent leg pain may also be experienced and should not be concerned about unless it worsens for no apparent reason. If so, please contact the office. 5. We will provide appropriate medication within the normal guidelines of their prescribed use. We will also be very cautious and aware of potential abuse and extended duration of patients' medication needs. a. Pain medications are for your comfort and to assist with sleep and rest so that the tissue can heal. They are not provided in order to return to normal activity and should not be used through the day. To do so or worsening pain at night can result from ongoing tissue damage and development of tolerance to the prescribed medicine. 6. Please allow 2-3 days to process refills. Prescriptions will not be mailed but must be picked up at the office. FOLLOW UP VISIT: Keep your scheduled follow-up appointment. Any questions, please call the office at . Total Time Total Time Spent Total Time Spent (In Minutes): 40 minutes Total Time Includes: Examination of the Patient, Discharge Planning, Medication Reconciliation and Communication With Other Providers Discharge Plan Discharge Items Patient Disposition: Home - Self-Care Reason For Visit: POSSIBLE SEPSIS FROM DIVERTICULITIS Discharge Diagnosis: Right sided abdominal pain; diarrhea; Acute Diverticulitis; s/p lumbar spine for decompression of spinal cord, morbid obesity with BMI of 43 in an adult, Hypertension, Hypothyroidism Condition: Good Discharge Goals: Decrease discomfort Activity: Per 'Additional Instructions' section Non-emergency contact: Primary Care Provider Call non-emergency contact if: you have any medication questions Follow-up/Referrals: PCP,NO [Primary Care Provider] - Diet: Regular Addtl Provider Instructions: General Discharge Instructions Patient should take ciprofloxacin 500 mg BID (means twice daily) for 3 more days and metronidazole 500 mg every 8 hours to complete the total 10 day course of antibiotics which was started in the hospital for diverticulitis Patient should see primary care doctor and consider colonoscopy in the future Patient should avoid hydrochlorothiazide until follow up with primary care doctor Patient may take 10 mg lisinopril daily for hypertension Patient should take metoprolol succinate 25 mg daily which is less than patient's home dose because heart rate and blood pressure controlled on 25 mg daily while in the hospital Patient should take senna daily to prevent constipation Patient may take acetaminophen 325 every 6 hours as needed for mild pain Patient has tramadol prescription 50 mg every 4 hours as needed for moderate to severe pain because of recent back surgery (24 tablets prescribed) . [place] PDMP was checked and patient does not have other active narcotic prescriptions prior to this hospital stay. 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 patient initially received IV solumedrol s/p lumbar decompression and fusion on 10/26/18 (#1 lumbar decompression bilateral medial facetectomies foraminotomies L2-3 L3- 4. #2 posterior spinal fusion L3-4. #3 placement posterior instrumentation L3- 4. #4 interbody fusion L3-4. #5 placement of peek cage 12 x 22 mm L3-4. #6 placement of local autograft in the posterior lateral gutters per #7 placement infuse collagen sponge bone mass graft in the posterior lateral gutters and ostial amp and interbody space.) Orthopedic discharge Instructions: follow-up in office in 2 weeks. [phone] ACTIVITY RECOMMENDATIONS: SELF CARE INSTRUCTIONS AFTER THORACIC/LUMBAR FUSIONS 1. You may walk to your tolerance. It is good exercise for your legs and back. Expect some back and intermittent leg aches and pains. 2. You may perform "counter-top" level activities (make a sandwich, waldemar with a project, etc.). 3. No bending or lifting of more than 10 pounds or back twisting of any nature (roll like a log when turning in bed). 4. You may ride in a car for 20-30 minutes at a time. No driving until after your first visit with your doctor. 5. Frequent changes of position and restricting sitting to 30 minutes at a time will help limit the amount of back spasms and stiffness you may experience. 6. You may discontinue the use of ambulatory aids (cane, crutches, etc.) once your strength and confidence allow. 7. You may financial services representative the shower and let water strike your incision when you arrive home at least once daily. Do not take a tub bath, sit in a hot tub or go into a swimming pool until after your first recheck in the office. SPECIAL CARE INSTRUCTIONS: VERY IMPORTANT TO READ AND REVIEW A. Your surgical incision has been closed with a cosmetic suture under the skin that will dissolve in about 6 weeks. In 14 days, you can use a pair of clean scissors and cut the suture that is left outside of the skin at the ends of your incision. 1. The small skin tapes can be removed 7 days after surgery if they have not fallen off by that point. 2. You may keep the wound open to air as much as possible to promote healing after post-op day number 5 unless told otherwise by your doctor. 3. If you think the wound looks like it is becoming infected (redness or worsening drainage) and/or you are experiencing fever, chill or worsening back pain and muscle spasms, contact the office so that we may evaluate you as soon as possible. B. Complications are uncommon, but please contact us if you have any signs or symptoms of: 1. wound infection (fever higher than 102.5 degrees F, redness, separation of wound, drainage, or increasing pain from the incision) 2. blood clots in legs (pain, swelling, redness and warmth in legs) 3. urinary tract infection (fever higher than 102.5 degrees F, burning upon urination or increased frequency of urination) 4. nerve problems (inability to walk on your toes or heels, numbness, loss of bowel or bladder control) 5. any other symptoms that concern you C. Please call the office at if you have any concerns or questions about your operation or recovery. D. No smoking! Smoking drastically decreases the chance of a solid fusion. E. Do not take any anti-inflammatory medications (Indocin, Advil, Motrin, Aspirin, Naprosyn, etc.) as these may inhibit the chance of a solid fusion. Tylenol is okay to take for pain. MANAGING PAIN AFTER SPINAL SURGERY 1. Narcotic medication is intended for short-term use and will be provided for surgical pain. Surgical pain usually lasts for a period of 4-6 weeks. Narcotic medication includes Percocet, Vicodin, Darvocet, Tylenol #3 or Lortab. 2. Longer-term pain is more appropriately treated with non-narcotic medication such as Tylenol ES. 3. Muscle spasm is not appropriately treated with narcotics. Muscle relaxers such as Soma, Flexeril or Skelaxin can be used along with Tylenol ES. 4. Remember that we all live with some "aches and pains". This is not unusual or uncommon after an injury or as we get older. a. Back pain is expected and may include muscle spasms for 4 to 6 weeks after surgery. The pain should gradually improve. If the pain worsens for no apparent reason, please contact the office. b. Intermittent leg pain may also be experienced and should not be concerned about unless it worsens for no apparent reason. If so, please contact the office. 5. We will provide appropriate medication within the normal guidelines of their prescribed use. We will also be very cautious and aware of potential abuse and extended duration of patients' medication needs. a. Pain medications are for your comfort and to assist with sleep and rest so that the tissue can heal. They are not provided in order to return to normal activity and should not be used through the day. To do so or worsening pain at night can result from ongoing tissue damage and development of tolerance to the prescribed medicine. 6. Please allow 2-3 days to process refills. Prescriptions will not be mailed but must be picked up at the office. FOLLOW UP VISIT: Keep your scheduled follow-up appointment. Any questions, please call the office at . Prescriptions: New lisinopril 10 mg Tablet 10 mg PO QAM 30 Days Qty: 30 RF: 0 metoprolol succinate 25 mg Tablet Extended Release 24 Hr 25 mg PO QAM 30 Days Qty: 30 RF: 0 metronidazole 500 mg Tablet 500 mg PO Q8 3 Days Qty: 9 RF: 0 ciprofloxacin HCl 500 mg Tablet 500 mg PO BID 3 Days Qty: 6 RF: 0 sennosides [Senokot] 8.6 mg Tablet 8.6 mg PO QAM 30 Days Qty: 30 RF: 0 acetaminophen 325 mg capsule 325 mg PO Q6H PRN (Reason: mild pain) 5 Days Qty: 20 RF: 0 tramadol 50 mg Tablet 50 mg PO Q4H PRN (Reason: moderate to severe pain) 4 Days Qty: 24 RF: 0 Continued clonazepam 0.5 mg tablet 0.5 tab PO HS RF: 0 sertraline 100 mg tablet 100 mg PO HS RF: 0 cyanocobalamin (vitamin B-12) [Vitamin B-12] 1,000 mcg Tablet 1,000 mcg PO DAILY RF: 0 aspirin [Aspirin Low Dose] 81 mg Tablet,Delayed Release (Dr/Ec) 162 mg PO DAILY RF: 0 calcium carbonate [Calcium 600] 600 mg calcium (1,500 mg) Tablet PO DAILY RF: 0 simvastatin 20 mg tablet 20 mg PO HS RF: 0 ferrous sulfate 325 mg (65 mg iron) Tablet 325 mg PO BID RF: 0 levothyroxine 125 mcg tablet 125 mcg PO QAM RF: 0 omeprazole 20 mg capsule,delayed release(DR/EC) 20 mg PO HS RF: 0 buspirone 15 mg tablet 15 mg PO BID RF: 0 duloxetine 20 mg capsule,delayed release(DR/EC) 20 mg PO DAILY RF: 0 cholecalciferol (vitamin D3) [Vitamin D3] 1,000 unit Tablet 1,000 unit PO DAILY RF: 0 Breo Ellipta 100-25 mcg/dose blister with device 1 puff inhalation DAILY RF: 0 Discontinued meloxicam 15 mg tablet PO DAILY RF: 0 metoprolol succinate 100 mg tablet extended release 24 hr 100 mg PO DAILY RF: 0 potassium chloride 10 mEq tablet extended release 0.5 tab PO DAILY RF: 0 acetaminophen [Tylenol Extra Strength] 500 mg Tablet 500 mg PO DIRECTED RF: 0 potassium citrate 10 mEq (1,080 mg) Tablet Extended Release 10 meq PO DAILY RF: 0 lisinopril-hydrochlorothiazide 10-12.5 mg tablet 1 tab PO DAILY RF: 0 Stand-Alone Forms: [facility] Discharge Orders: Discharge Order (Routine); Ordered 10/30/18 Ordered By: Azar Mims Admission Data Admit Date/Time: 10/23/18 11:28 Attending Provider: Azar Mims Admit Provider: Kirby Soto Primary Care Provider: PCP,NO Other Providers: Marshall Huitron ; Kim Mosley ; Olya Gongora ; Payton Otto ; Toni Rodriges ; Annita Mcknight ; Jc Colvin ; Susan Foy ; Maxwell Leon ; Ayaan Arnold ; Sehrry Al ; Rosemary Liriano ; Theresa Rosenbaum ; Virgen Lakhani ; Tika Leyva ; Kirby Soto ; Jose Juan Corcoran ; Lesley Heath ; Rodrigue Du ; Priscilla Valdez Service: Surgical Services
--- NOTE | 2018-11-02 08:53 | Coding Query ---
To promote full compliance with coding requirements relating to patient care, provider participation is requested in all cases of co pilot uncertainty. Please assist us with the question(s) below: Coding Question: "Fever on admission and was evaluated for concern for possible sepsis on admission on 10/23/18" was documented throughout the chart. Please clarify if the patient had sepsis during this admission. Thank you for your help! Have a great day! SEPSIS ( ) Diagnosed and POA ( ) Diagnosed and not POA ( ) Ruled out ( x ) Other (please specify) The concern for sepsis was documented on admission H and P by Dr. Huitron. My summary of the hospital course reflects those concerns. By the time I came to the patient's care, she was not in sepsis. She had remained on antibiotics for diverticulitis. Review of her blood cultures previously did not find evidence of a bacteremia. Please send your query to the initial hospitalist provider for further clarification MONID
--- NOTE | 2018-11-11 11:08 | Coding Query ---
To promote full compliance with coding requirements relating to patient care, provider participation is requested in all cases of drone software development engineer uncertainty. Please assist us with the question(s) below: Coding Question: "Fever on admission and was evaluated for concern for possible sepsis on admission on 10/23/18" was documented throughout the chart. Please clarify if the patient had sepsis during this admission. Thank you for your help! Have a great day! SEPSIS ( X ) Diagnosed and POA ( ) Diagnosed and not POA ( ) Ruled out ( ) Other (please specify) MTDD
== END 2018-10-30 10:31 | disposition home or self-care (01) | DRG 854 ==
LOC: ED 08:20 → 2N 11:28 → SUATTDRO 11:28 → 2N 12:43 → 3E 10-26 14:24